=== PATIENT | female | born 1975 | race Caucasian/White ===

== ENCOUNTER 2019-02-26 15:57 | Inpatient (IN) ==
[2019-02-26 16:26] LABS: Hematocrit (blood only) 27.6 % (37-47); Hemoglobin 8.5 g/dL (12.0-16.0); Mean Corpuscular Hgb Conc 30.8 g/dL (32-36); Mean Corpuscular Volume 98.2 fL (80-100); Mean Platelet Volume 8.6 fL (7.4-10.4); Nucleated RBC # (auto) 0.06 K/uL (0-0); Nucleated RBC % (auto) 0.5 %; Platelet Count 232 K/uL (130-400); RDW Coefficient of Variation 16.2 % (11.5-14.5); RDW Standard Deviation 57.8 fL (36.4-46.3); Red Blood Count 2.81 M/uL (4.2-5.4); White Blood Count 13.51 K/uL (4.8-10.8)
[2019-02-26 16:53] LABS: Basophils # (auto) 0.03 K/uL (0-0.2); Basophils % (auto) 0.2 %; Eosinophils # (auto) 0.08 K/uL (0-0.5); Eosinophils % (auto) 0.6 %; Hypochromasia Present; Immature Granulocytes # (auto) 0.53 K/uL (0.00-0.02); Immature Granulocytes % (auto) 3.9 %; Lymphocytes % (auto) 2.2 %; Monocytes # (auto) 1.01 K/uL (0.11-0.59); Monocytes % (auto) 7.5 %; Neutrophils # (auto) 11.56 K/uL (1.4-6.5); Neutrophils % (auto) 85.6 %
[2019-02-26 16:59] LABS: Calcium 9.9 mg/dl (8.5-10.1); Creatinine Clr Calc Pharmacy 114.8 ml/min; Est GFR (African American) 119.7; Est GFR (Non-African American) 103.3; Potassium 3.4 mmol/L (3.5-5.1)
[2019-02-26 17:04] LABS: Albumin Globulin Ratio 0.5 (0.9-2); Bilirubin,Total 0.3 mg/dl (0.2-1); Globulin 3.8 gm/dl (2.5-4.0); Total Protein 5.8 gm/dl (6.4-8.2); Troponin I 0.025 ng/ml (0-0.045)
--- NOTE | 2019-02-26 17:32 | XRay Report ---
XR chest 1V portable HISTORY: 43 years-old Female weakness acute weakness COMPARISON: Chest radiograph 09/30/2018 TECHNIQUE: Portable AP view of the chest FINDINGS: Cardiac silhouette appears unchanged. Stable positioning of left pectoral Acvvla-b-Cfql catheter. Khadra ear subsegmental right basilar opacities suggest atelectasis. There are hazy left. Hilar and left blas g base opacities with small left pleural effusion. No pneumothorax. Bones of the chest appear grossly intact. IMPRESSION: 1. Hazy left perihilar and left lung base opacities with small left pleural effusion. 2. Subsegmental right basilar atelectasis. The above report was generated using voice recognition software. It may contain grammatical, syntax o r spelling errors. Electronically signed by: Robbie Kohler M.D. 02/26/2019 5:30 PM
[2019-02-26] MEDS ORDERED: SODIUM CHLORIDE 0.9% 250 ML IV PRN (18:07)
[2019-02-26] MEDS ORDERED: CEFEPIME 2,000 MG/20 ML VIAL IV STA (18:07)
[2019-02-26] MEDS ORDERED: MoRPHine SULFATE 4 MG/ML 1 ML CARP\\VIAL IV PRN (18:07)
[2019-02-26] MEDS ORDERED: ONDANSETRON INJ 2 MG/ML 2 ML VIAL IV STA (18:07)
[2019-02-26] MEDS ORDERED: SODIUM CHLORIDE 0.9% 1000ML 500 ML IV ONE (18:07)
[2019-02-26 18:47] LABS: Partial Thromboplastin Time 26.6 Seconds (21.0-31.0); Prothrombin Time 10.5 Seconds (9.0-12.0)
[2019-02-26 19:04] LABS: Appearance Urine Clear (Clear); Bacteria Urine Automated Negative (Negative); Bilirubin Urine Negative (Negative); Blood Urine Negative (Negative); Color Urine Yellow; Glucose Urine UA Negative (Negative); Ketones Urine Trace (Negative); Leukocyte Esterase Urine Negative (Negative); Nitrite Urine Negative (Negative); Protein Urine Trace (Negative); RBC Urine Automated 0-4 /hpf (0-4); Specific Gravity Urine 1.032 (1.000-1.030); Urobilinogen Urine Negative (Negative); pH Urine 5.5 (4.5-7.5)
[2019-02-26] MEDS ORDERED: MAGNESIUM SULFATE / D5W 1 GM/100 ML BAG IV ONE (19:04)
[2019-02-26] MEDS ORDERED: OPTIRAY 320 125ml IV PRN (19:09)
--- NOTE | 2019-02-26 19:38 | CT Scan Report ---
CT angio chest PE protocol HISTORY: 43 years-old Female with PE. Acute shortness of breath TECHNIQUE: Multiple CTA images of the chest were obtained after the intravenous administration of 116 ml Optiray 320. Coronal and sagittal MIPS were obtained from the axial data set and were submitted for review. All measurements were obtained according to NASCET criteria. A dose lowering technique w as utilized adhering to the principles of ALARA. COMPARISON: CT abdomen and pelvis and chest radiograph of same day, PET CT 09/14/2018. FINDINGS: Limited exam secondary to positioning. CTA: Heart is normal in size without pericardial effusion. No thoracic aortic aneurysm or dissection. The pulmonary arterial tree is opacified to the level of the segmental branches and demonstrates no focal filling defects to suggest pulmonary thromboembolic disease. CT CHEST: Enlarged mediastinal and hilar lymph nodes include a 10 mm right paratracheal lymph node, image 187 s eries 7 which is new. Necrotic left infrahilar lymph nodes. Right lateral chest wall 1.2 x 1.0 cm nod ule on image 56 series 7 is also new from comparison as is a right paracentral lower chest wall 1.2 c m nodule on image 79 series 7. Small bilateral pleural effusions. Bilateral pulmonary nodules measuring up to 2.0 cm within the left upper lobe, image 198 series 7 are new from comparison compatible with pulmonary metastatic disease. A metastatic lesion within the basal left lower lobe demonstrates mild central cavitation. Largest m etastatic lesion on the right measures approximately 1.4 cm. Mild subsegmental bibasilar atelectasis. Exophytic 1.3 cm lesion of the superior pole left kidney. Multiple lytic bony metastasis are noted i ncluding bony destructive lesions of the T5, T6 and T7 vertebral bodies resulting in pathologic compr ession deformities at T6 and T7. There is probable tumor extension at T6 and right neuroforamen distr ibution and epidural space. Lytic lesions noted throughout the sternum, notably within the manubrium with soft tissue component noted. IMPRESSION: 1. Extensive metastatic disease throughout the chest has progressed from 09/14/2018 manifested by pulm onary metastasis, metastatic mediastinal and hilar adenopathy, metastatic chest wall nodules and lyti c bony metastasis. 2. Bony metastasis at T6 and T7 results in pathologic compression deformities. Soft tissue component at T6 involves the right neuroforaminal distribution and epidural space resulting in at least mild ce ntral canal stenosis. 3. Small bilateral pleural effusions, likely malignant. 4. Exophytic lesion of the about the super pole left kidney is also suggestive of metastasis, new fro m comparison. The above report was generated using voice recognition software. It may contain grammatical, syntax o r spelling errors. Electronically signed by: Robbie Kohler M.D. 02/26/2019 7:36 PM
--- NOTE | 2019-02-26 19:41 | CT Scan Report ---
ABDOMEN AND PELVIS CT WITH IV CONTRAST CT DOSE: 2186.90 mGy.cm HISTORY: please eval the pelvis/vaginal area--cancer hist TECHNIQUE: Multiaxial CT images of the abdomen and pelvis were performed following the use of intrave nous contrast. A dose lowering technique was utilized adhering to the principles of ALARA. COMPARISON STUDY: Pelvis CT 10/08/2018. PET CT 09/14/2018. FINDINGS: Trace bilateral pleural effusions. Scattered pulmonary nodules are better present in the day chest CT and are new from the prior study. There are 2 soft tissue nodules within the right ch est wall with the largest measuring 13 mm. These are also new from the prior study and likely represe nt metastatic foci. The spleen and kidneys are unremarkable. No hydronephrosis. There is a new hypode nse nodule abutting the upper pole the left kidney which measures 15 mm. This favors a metastatic foc us. 3 mm soft tissue nodule abutting the lower pole of the right kidney on image 209. This may also r epresent a small metastatic focus and is new from the prior study. Mild inflammatory change surroundi ng the pancreatic tail. This favors a mild acute pancreatitis. Prior cholecystectomy. Hepatic steatos is. No retroperitoneal lymphadenopathy. There is a Carrillo catheter within the bladder. This likely acc ounts for the gas within the bladder lumen. There is a 1.3 cm necrotic nodule within the lower left r ectus abdominis muscle. This is consistent with a metastatic focus. Soft tissue thickening of the vul va persists and is consistent with the patient's known malignancy. Small focal skin ulceration at the lateral left perineum/gluteal crease adjacent to the left side of the anus. This measures 1.9 cm. No evidence for an abscess. Moderate stool within the colon. No definite bowel wall thickening. Fat str anding adjacent to the sigmoid colon may represent serosal implants rather than inflammatory change. There is a mildly enlarged left external iliac lymph node measuring 1.6 cm. The inguinal lymphadenopa thy has improved. Mild superior endplate compression fracture at L2 which may be pathologic. There is also small compression fracture with a possible lytic lesion of the inferior endplate of L1. T6-T8 d estructive lesions are better appreciated on the same day chest CT. These result in compression fract ures at T6 and T7. IMPRESSION: 1. Interval development of extensive metastatic disease as described above. Please refer to the same day chest CT for further evaluation. 2. Mild acute pancreatitis. 3. Fat stranding surrounding the distal sigmoid colon may represent serosal implants rather than infl ammatory change. There is no definite bowel wall thickening. 4. Soft tissue thickening of the vulva persists consistent with the patient's known malignancy. There is a 1.9 cm focal skin ulceration within the left perineum/gluteal crease adjacent to the anus. No a bscess identified. Electronically signed by: Lobo Villegas M.D. 02/26/2019 7:40 PM
--- NOTE | 2019-02-26 21:57 | History & Physical Report ---
Date of Service February 26, 2019 Assessment & Plan (1) Hypoxia: Ms. Sow is a 43 year old female with a past medical history of vulvar cancer s/p excision, radiation and chemotherapy who presents to [facility] due to shortness of breath and weakness. She was found to be hypoxic in the emergency department, with an oxygen saturation of 89% on room air. Her chest CTA unfortunately revealed extensive metastatic disease throughout the chest, this is new from prior imaging. She was admitted to [facility] for further investigation as well as pain management. ED course: 2 g IV cefepime, 4 mg IV Zofran, 4 mg IV morphine sulfate, 500 mL normal saline bolus, 1 g magnesium sulfate. Hypoxia -Admit to med/surg -CTA negative for PE -CTA showed extensive metastatic disease throughout the chest, with small bilateral pleural effusion - likely the cause of her hypoxia -Continue oxygen as needed -Elevated white cell count of 13.51, however afebrile, no cough, normal lactate, no infection seen on CT chest. Received 2 g of IV cefepime in the emergency department. Blood cultures obtained. Will defer antibiotics for now, given no clear source of infection. 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 Completed chemotherapy and radiation, with good results. -Unfortunately, imaging reveals metastases in the lungs, bony mets at T6 and T7 with resultant compression deformities, a lesion in the superior pole of the left kidney, and a necrotic nodule in the lower left rectus abdominis muscle -> these findings are all new from her prior PET scan on September 14, 2018 -Oncology consulted for further management Pain management -Patient with severe pain to the vulvar area, as well as back (due to bony mets) -Patient takes 30 mg of morphine ER twice daily at home, with Tylenol and ibuprofen for breakthrough pain -We will continue 30 mg of morphine twice daily, with as needed 5 mg oxycodone q4h for breakthrough pain -2 mg IV morphine ordered q4h prn if oxycodone does not suffice -Bowel regimen ordered, given opioid usage -4mg IV zofran ordered q6h given patient gets nauseous with opioid use -lidocaine patch ordered for back pain, and lidocaine jelly ordered for vulvar lesions -wound care consult for vulvar lesions Bilateral lower extremity weakness -Patient with normal sensation in bilateral lower extremities, however notes diffuse weakness in both legs -CTA showed central canal stenosis, likely contributing to bilateral lower extremity weakness -Neurochecks ordered every 4 hours Elevated troponin -No chest pain, EKG with nonspecific T wave abnormalities in lateral leads -Troponin elevated at 0.053 -Trend troponin q6h, repeat EKG in a.m. Inflammation of pancreas -seen on CT abdomen/pelvis -pt without abdominal pain, normal lipase Anemia -Hemoglobin noted to be 8.5, no signs or symptoms of bleeding -No indication to transfuse at this point, follow CBC -Type and cross completed Hypokalemia/Hypomagnesmia -repleted, repeat labs tomorrow CODE STATUS: Full Disposition: Admit to med/surg DVT Prophylaxis: 5,000 units heparin SQ BID F/E/N: Regular diet. Potassium level 3.4, magnesium 1.6 - both repleted. (2) Anemia: (3) Shortness of breath: (4) Weakness: (5) Metastatic cancer: (6) Vulva cancer: (7) Lower extremity weakness: (8) Pain management: (9) Pleural effusion: (10) Elevated troponin: History of Present Illness Primary Care Provider: NO PCP Ms. Sow is a 43 year old female with a past medical history of vulvar cancer s/p excision, radiation and chemotherapy who presents to [facility] due to shortness of breath and weakness. She states that she has no history of pulmonary problems. She notes progressively worsening shortness of breath over the past 2 weeks, and states it has gotten to the point where she is unable to stand due to shortness of breath. She denies fever, chills or cough. She denies chest pain, palpitations, lightheadedness. She denies abdominal pain, nausea, vomiting, but does endorse decreased appetite. With regards to her history of vulvar cancer, she presented to her program support specialist in July 2018 due to perineal pain. She was found to have a lesion extending from the vaginal introitus to the rectum. She was referred to Dr. Lazaro at [facility] who has been following her since. She has also been following with Dr. Early and Dr. Becker in [place]. She had a PET scan in August 2018 that showed masses in the vulva, vagina, perineum and anterior wall of the anus, as well as adenopathy in the bilateral inguinal chains. There was no additional metastatic disease seen in the chest, abdomen, or pelvis. 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 She did not have any surgical excision. She completed her treatment in November 2018. This was considered a successful treatment, and she was not scheduled for any further chemotherapy or radiation. She was meant to have a PET scan in February for reassessment. Her radiation treatment left her with extensive ulceration in the vulvar and perineal region. She takes 30 mg of extended release morphine twice a day for this, and uses Tylenol and ibuprofen for breakthrough pain. She states that she was previously on oxycodone for breakthrough pain, however this was taken off as her pain had improved. In the last 2 weeks, she notes worsening pain in her perineal region, as well as back pain which is new. She attributes this to decreased activity at home. She does endorse bilateral leg weakness and numbness, which she states is new. She has difficulty with urinating and bowel movements due to pain, however denies urinary retention or fecal incontinence. PMHx: vulvar cancer, PCOS, obesity, gestational diabetes PSHx: section, cholecystectomy SHx: , lives at home with her and 4 children. No history of alcohol use, non-smoker, no recreational drug use Allergies Allergy/AdvReac Type Severity Reaction Status Date / Time No Known Allergies Allergy Mild Verified 02/26/19 16:39 Home Medications Home Medications Medication Instructions Recorded Confirmed Type ondansetron 8 mg oral soluble film 8 mg PO Q8H PRN ea 10/19/18 02/26/19 History prochlorperazine maleate 10 mg 10 mg PO Q6H PRN tab 10/19/18 02/26/19 History tablet morphine ER 30 mg capsule,extended 30 mg PO Q12H cap 01/14/19 02/26/19 History release 24 hr multiphase potassium chloride ER 20 mEq 20 meq PO Q OTHER DAY 01/14/19 02/26/19 History tablet,extended release acetaminophen [Tylenol Extra 1,000 mg PO Q6H PRN 02/26/19 02/26/19 History Strength] diphenoxylate-atropine [Lomotil] 1 tab PO BID PRN 02/26/19 02/26/19 History ibuprofen 200 mg PO QID PRN 02/26/19 02/26/19 History norethindrone ac-eth estradiol 1 tab PO UD 02/26/19 02/26/19 History [Margarito 1.5 (21)] silver sulfadiazine [Silvadene] 1 applic TOP BID PRN 02/26/19 02/26/19 History Past Med/Surg History Medical History Morbid obesity PCOS (polycystic ovarian syndrome) Vulvar carcinoma PLAN FOR FUTURE CHEMO/RADIATION PER HEME/ONC NOTE Surgical History History of cholecystectomy History of lymph node excision History of surgery VULVAR RESECTION WITH LNB= 08/2018; ON LOVENOX POST-OP (TO BE COMPLETED PRIOR TO SURGERY PER PATIENT) Previous section Family History Mother No problems noted. Father No problems noted. 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 " Other Information That Helps Us Care for You: No Feels Safe at Home: Yes Safety Concerns: Feels Safe At This Time Smoking Status: Never smoker Second Hand Exposure: No Hx Alcohol Use: No Hx Substance Use: No caffeine: No during the past year weight has: remained stable Review of Systems Constitutional: + fatigue, + weakness and + anorexia; no fever and no chills Respiratory: + dyspnea; no cough, no chest congestion and no wheezing Cardiovascular: no chest pain, no palpitations, no lightheadedness, no syncope, no edema and no calf pain Gastrointestinal: no abdominal pain, no nausea and no vomiting Genitourinary: + dysuria (Due to vulvar lesions, as opposed to overt dysuria); no urinary frequency, no urinary urgency, no urinary incontinence and no hematuria Musculoskeletal: + back pain and + muscle weakness (Bilateral legs) Neurologic: + generalized weakness and + numbness (Bilateral legs); no falls Physical Exam Constitutional: + ill appearing, + obese and cooperative Pale-appearing. Appears uncomfortable, lying very still, with pillows underneath the left side of her back Eyes: PERRL, conjunctivae normal, anicteric sclerae ENMT: external ear and nose normal, oropharynx normal Respiratory: normal respiratory effort, lungs clear to auscultation Cardiovascular: RRR, no murmur, no edema Gastrointestinal (Abdomen): Inspection/Auscultation: abdomen normal to inspection Percussion/Palpation: abdomen soft; abdomen nontender, no guarding and abdomen not rigid Musculoskeletal: Spine: + thoracic spinal tenderness and + paraspinal tenderness Neurologic: 5 out of 5 strength in upper extremities, 4 out of 5 strength in lower extremities bilaterally. Sensation intact in lower extremities bilaterally Genitourinary: multiple ulcerations noted over vulva and perineal region. Carrillo catheter in place Results & Data Vital Signs (Past 12 Hours) Vital Signs Temp Pulse Resp BP Pulse Ox 02/26/19 17:59 100 H 15 108/57 L 92 02/26/19 16:11 89 L 02/26/19 16:00 37.1 C 102 H 22 119/71 89 L Supervising Physician Co-Signing Physician Notes patient seen and examined, chart reviewed, case discussed with Dr. Elam and I agree with her assessment and plan as above. Briefly, patient is a 43yo C female with history of vulvar cancer s/p surgical excision, XRT and chemo in November presenting with 2 week of SOB. Patient found to have diffuse metastaic disease. On exam she is afebrile, HD stable Assessment/Plan: -Pain control with Morphine, Oxy -Oncology consult -Remainder of plan as above PG Care Time/CCT Total # of Minutes Spent Total Time Spent with Patient: Total time spent is greater than 50% in coordination of care (as documented) at patient's floor/unit and/or counseling patient: Resident Activity Tracking Resident Involvement: Resident Care Provided Care Provided: Adult Hospital Medicine (1) Anemia Anemia type: unspecified type Qualified Code(s): D64.9 - Anemia, unspecified
[2019-02-26] MEDS ORDERED: MoRPHine SULFATE CR 15 MG TABCR PO SCH (22:41)
[2019-02-26] MEDS ORDERED: DIPHENOXYLATE/ATROPINE 2.5/0.025MG TAB PO PRN (22:41)
[2019-02-26] MEDS ORDERED: ONDANSETRON INJ 2 MG/ML 2 ML VIAL IV PRN (22:41)
[2019-02-26] MEDS ORDERED: PROCHLORPERAZINE MALEATE 10 MG TAB PO PRN (22:41)
[2019-02-26] MEDS ORDERED: IBUPROFEN 200 MG TAB PO PRN (22:41)
[2019-02-26] MEDS ORDERED: ACETAMINOPHEN 500 MG TAB PO PRN (22:41)
[2019-02-26] MEDS ORDERED: MoRPHine SULFATE 2 MG/ML CARP IV PRN (22:41)
[2019-02-26] MEDS ORDERED: LIDOCAINE 2% JELLY 5 ML TUBE EXT PRN (22:41)
--- NOTE | 2019-02-26 23:01 | Emergency Department Note ---
Entered by Francisca Shabazz acting as a scribe for History of Present Illness General Chief complaint: Weakness Stated complaint: WEAKNESS, UNABLE TO AMBULATE Time Seen by Provider: 02/26/19 17:44 Source: patient History of Present Illness Onset (ago): week(s) 1 Location: head (generalized) Pain Consistency: + other (worsening) Maximum Pain Intensity: 7 Quality: + other (weakness) Associated symptoms: + nausea/vomiting (positive intermittent vomiting at baseline ) and + other (negative black or bloody stools; positive pale ); no cough and no fever/chills The patient is a 43 year old female who presents to the Emergency Room with complaints of worsening weakness that began about one week prior to arrival. The patient states that she was unable to walk today. 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 She reports that after this, she began to have vaginal pain and ulcers. The patient states that she has still these ulcers. The patient denies any black or bloody stools, cough, and fever. She states that she has been pale recently. The patient reports intermittent vomiting. Home Medications Home Medications Medication Instructions Recorded Confirmed Type ondansetron 8 mg oral soluble film 8 mg PO Q8H PRN ea 10/19/18 02/26/19 History prochlorperazine maleate 10 mg 10 mg PO Q6H PRN tab 10/19/18 02/26/19 History tablet morphine ER 30 mg capsule,extended 30 mg PO Q12H cap 01/14/19 02/26/19 History release 24 hr multiphase potassium chloride ER 20 mEq 20 meq PO Q OTHER DAY 01/14/19 02/26/19 History tablet,extended release acetaminophen [Tylenol Extra 1,000 mg PO Q6H PRN 02/26/19 02/26/19 History Strength] diphenoxylate-atropine [Lomotil] 1 tab PO BID PRN 02/26/19 02/26/19 History ibuprofen 200 mg PO QID PRN 02/26/19 02/26/19 History norethindrone ac-eth estradiol 1 tab PO UD 02/26/19 02/26/19 History [Margarito 1.5/30 (21)] silver sulfadiazine [Silvadene] 1 applic TOP BID PRN 02/26/19 02/26/19 History Allergies Allergy/AdvReac Type Severity Reaction Status Date / Time No Known Allergies Allergy Mild Verified 02/26/19 16:39 Past Med/Surg History Medical History Morbid obesity PCOS (polycystic ovarian syndrome) Vulvar carcinoma PLAN FOR FUTURE CHEMO/RADIATION PER HEME/ONC NOTE Surgical History History of cholecystectomy History of lymph node excision History of surgery VULVAR RESECTION WITH LNB= 08/2018; ON LOVENOX POST-OP (TO BE COMPLETED PRIOR TO SURGERY PER PATIENT) Previous section Family History Mother No problems noted. Father No problems noted. 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 and A total of 10 systems reviewed and were otherwise negative Physical Exam Vital Signs Vital Signs - 24 hr 02/26/19 16:00 02/26/19 16:11 02/26/19 17:59 Temperature 37.1 C Temperature Source Oral Sepsis Recent Fever Within 48 Hours No Sepsis New/Unexplained Change in Mental Status No Sepsis Action Taken by Nursing No Action Required Oxygen Flow Rate - Titration 2 Pulse Oximetry Post Tiitration 94 Pulse Rate 102 H 100 H Pulse Rate from SpO2 Sensor 101 H Respiratory Rate 22 15 Respiratory Effort / Characteristics Short of Breath Respiratory Depth Normal Respiratory Pattern Regular Blood Pressure 119/71 108/57 L Blood Pressure Mean 87 74 Pulse Oximetry 89 L 89 L 92 Oxygen Delivery Method Room Air Room Air Nasal Cannula Nasal Cannula Oxygen Flow Rate 0 2 GENERAL: Patient is in no acute distress. HEENT: No acute trauma, normocephalic atraumatic, mucous membranes moist, no nasal congestion, no scleral icterus. NECK: No stridor, no adenopathy, no meningismus, trachea is midline. LUNGS: Clear to auscultation bilaterally, no wheeze, no rhonchi, breath sounds equal. HEART: Without murmurs gallops or rubs, regular rate and rhythm. ABDOMEN: Soft, nontender, bowel sounds positive, no hernias, no peritonitis. VAGINAL: Extensive ulcerations to the vaginal area, rectal area, and perineal area. Some skin erythema surrounding the ulcers and there is some subtle warmth. The whole area is very tender. RECTAL: Could not be performed secondary to the ulcers and pain. EXTREMITIES: No cyanosis or edema, full range of motion of all the joints without pain or difficulty, no signs for acute trauma. NEUROLOGIC: Oriented x 3, no acute motor or sensory deficits, no focal weakness. SKIN: Pale. No rash, no jaundice, no diaphoresis. Course 1800: Past medical records reviewed. The patient was evaluated in room C6. A complete history and physical exam was performed. 2003: I updated the patient on all results. 2007: [facility] states that the patient does not need to be transferred to another facility. 2044: [facility]. 2117: I updated the patient on the treatment plan. She is in agreement with this. Consultations Consultation #1: I [facility] who states that the patient does not need to be transferred to another facility. Time: 20:08 Consultation #2: [facility] for further evaluation. Time: 20:45 Administered Medications Acetaminophen (Tylenol) 1,000 mg PO Q6H PRN PRN Reason: Pain Stop: 03/28/19 22:40 Last Admin: 02/27/19 05:24 Dose: 1,000 mg Documented by: [id number] Heparin Sodium (Porcine) (Heparin Sodium (Porcine)) 5,000 units SQ Q12 NICOLLE Stop: 03/29/19 08:59 Last Admin: 02/27/19 08:47 Dose: 5,000 units Documented by: [id number] Cosigned by: [id number] Heparin Sodium (Porcine) (Heparin Sod 100 Unit/Ml Flush) 5 ml FLUSH PRN PRN PRN Reason: Flush Stop: 03/28/19 22:59 Last Admin: 02/27/19 00:00 Dose: 5 ml Documented by: [id number] Hydromorphone HCl (Dilaudid Maintenance [employer]ic 2Nd Shift) 25 mg IV PRN PRN; Protocol PRN Reason: Pain Stop: 03/13/19 10:23 Last Admin: 02/27/19 11:04 Dose: 25 mg Documented by: [id number] Cosigned by: [id number] Cefepime HCl 2,000 mg/ Syringe 20 mls @ 5.5 mls/min IV Q8H NICOLLE; Protocol Stop: 03/01/19 05:59 Last Admin: 02/27/19 06:04 Dose: 5.5 mls/min Documented by: [id number] Lactated Ringer's (Lr) 1,000 mls @ 125 mls/hr IV .Q8H NICOLLE Stop: 02/27/19 22:14 Last Admin: 02/27/19 07:27 Dose: 125 mls/hr Documented by: [id number] Sodium Chloride (Nss 1000ml) 1,000 mls @ 15 mls/hr IV .Q24H NICOLLE Stop: 03/13/19 10:24 Last Admin: 02/27/19 11:19 Dose: Not Given Documented by: [id number] Ioversol (Optiray 320 125ml) 116 ml IV ONCE PRN PRN Reason: Interaction Checking Stop: 03/02/19 19:08 Last Admin: 02/26/19 19:10 Dose: 116 ml Documented by: [id number] Lidocaine (Lidoderm 5%) 1 patch TD DAILY@1230 NICOLLE Stop: 03/29/19 12:29 Last Admin: 02/27/19 12:39 Dose: 1 patch Documented by: [id number] Lidocaine HCl (Xylocaine Jely 2%) 5 ml EXT TID PRN PRN Reason: Pain Stop: 03/28/19 22:40 Last Admin: 02/26/19 23:44 Dose: 5 ml Documented by: [id number] Miscellaneous (Order Awaiting Action) 1 ea N/A QS [facility] Stop: 03/29/19 00:00 Last Admin: 02/27/19 09:00 Dose: Not Given Documented by: [id number] Admin: 02/27/19 00:38 Dose: Not Given Documented by: [id number] Morphine Sulfate (Ms Contin) 30 mg PO Q12 NICOLLE Stop: 03/12/19 23:14 Last Admin: 02/27/19 08:45 Dose: 30 mg Documented by: [id number] Admin: 02/26/19 23:35 Dose: 30 mg Documented by: [id number] Oxycodone HCl (Roxicodone Immediate Rel) 5 mg PO Q4H PRN PRN Reason: Moderate Pain Stop: 03/12/19 22:40 Last Admin: 02/27/19 07:34 Dose: 5 mg Documented by: [id number] Discontinued Medications Hydromorphone HCl (Dilaudid) 1 mg IV ONE STA Stop: 02/27/19 10:25 Last Admin: 02/27/19 10:42 Dose: 1 mg Documented by: [id number] Cefepime HCl (Maxipime) 2,000 mg in 20 mls @ 5 mls/min IV NOW STA; Protocol Stop: 02/26/19 18:10 Last Admin: 02/26/19 19:25 Dose: 5 mls/min Documented by: [id number] Sodium Chloride (Nss 1000ml) 500 mls @ 999 mls/hr IV .Q31M ONE Stop: 02/26/19 18:37 Last Infusion: 02/26/19 19:02 Dose: 0 mls/hr Documented by: [id number] Admin: 02/26/19 18:35 Dose: 999 mls/hr Documented by: [id number] Magnesium Sulfate/Dextrose (Magnesium Sulfate / D5w) 1 gm in 100 mls @ 100 mls/hr IV ONE ONE Stop: 02/26/19 20:03 Last Infusion: 02/26/19 20:54 Dose: 0 mls/hr Documented by: [id number] Admin: 02/26/19 19:25 Dose: 100 mls/hr Documented by: [id number] Vancomycin HCl 2,500 mg/ (Sodium Chloride) 550 mls @ 200 mls/hr IV ONE ONE; Protocol Stop: 02/27/19 08:44 Last Infusion: 02/27/19 09:10 Dose: 200 mls/hr Documented by: [id number] Admin: 02/27/19 06:04 Dose: 200 mls/hr Documented by: [id number] Sodium Chloride (Nss 1000ml) 1,000 mls @ 999 mls/hr IV .Q1H1M STA Stop: 02/27/19 06:42 Last Infusion: 02/27/19 07:27 Dose: 0 mls/hr Documented by: [id number] Admin: 02/27/19 05:53 Dose: 999 mls/hr Documented by: [id number] Lidocaine (Lidoderm 5%) 1 patch TD HS NICOLLE Stop: 03/28/19 23:14 Last Admin: 02/26/19 23:41 Dose: 1 patch Documented by: [id number] Miscellaneous (Remove Lidoderm Patch) 1 ea N/A QAM NICOLLE Stop: 03/29/19 08:59 Last Admin: 02/27/19 08:59 Dose: 1 ea Documented by: [id number] Morphine Sulfate (Morphine Sulfate) 4 mg IV Q30M PRN PRN Reason: Pain Stop: 03/12/19 18:06 Last Admin: 02/26/19 18:35 Dose: 4 mg Documented by: [id number] Morphine Sulfate (Morphine Sulfate) 2 mg IV Q4H PRN PRN Reason: Severe Pain Stop: 03/12/19 22:40 Last Admin: 02/27/19 08:45 Dose: 2 mg Documented by: [id number] Ondansetron HCl (Zofran) 4 mg IV NOW STA Stop: 02/26/19 18:08 Last Admin: 02/26/19 18:35 Dose: 4 mg Documented by: [id number] Potassium Chloride (Klor-Con M20) 20 meq PO NOW STA Stop: 02/26/19 23:59 Last Admin: 02/27/19 00:21 Dose: 20 meq Documented by: [id number] Medical Decision Making Differential Diagnosis Differential diagnoses include cellulitis, abscess, PE, sepsis, CHF, pneumonia, anemia, electrolyte imbalance, dehydration, UTI, and others were considered. Medical Records Attestation: I reviewed the patient's medical records. Home Medications Current Medication List: was personally reviewed by me Laboratory Data Attestation: I reviewed the patient's lab results. Result diagrams: 02/27/19 05:43 02/27/19 05:43 Lab Results 02/26/19 02/26/19 02/26/19 Range/Units 16:10 16:10 16:10 WBC 13.51 H (4.8-10.8) K/uL RBC 2.81 L (4.2-5.4) M/uL Hgb 8.5 L (12.0-16.0) g/dL Hct 27.6 L (37-47) % MCV 98.2 (80-100) fL MCH 30.2 (25-34) pg MCHC 30.8 L (32-36) g/dL RDW Std Deviation 57.8 H (36.4-46.3) fL RDW Coeff of Karthik 16.2 H (11.5-14.5) % Plt Count 232 (130-400) K/uL MPV 8.6 (7.4-10.4) fL Immature Gran % (Auto) 3.9 % Neut % (Auto) 85.6 % Lymph % (Auto) 2.2 % Hemphill % (Auto) 7.5 % Eos % (Auto) 0.6 % Baso % (Auto) 0.2 % Immature Gran # (Auto) 0.53 H (0.00-0.02) K/uL Neut # (Auto) 11.56 H (1.4-6.5) K/uL Lymph # (Auto) 0.30 L (1.2-3.4) K/uL Hemphill # (Auto) 1.01 H (0.11-0.59) K/uL Eos # (Auto) 0.08 (0-0.5) K/uL Baso # (Auto) 0.03 (0-0.2) K/uL Absolute Nucleated RBC 0.06 H (0-0) K/uL Nucleated RBC % (auto) 0.5 % Hypochromasia Present PT (9.0-12.0) Seconds INR (0.9-1.1) APTT (21.0-31.0) Seconds PTT Ratio Sodium 137 (136-145) mmol/L Potassium 3.4 L (3.5-5.1) mmol/L Chloride 107 (98-107) mmol/L Carbon Dioxide 20 L (21-32) mmol/L Anion Gap 10.0 (3-11) BUN 20 H (7-18) mg/dl Creatinine 0.72 (0.6-1.2) mg/dl Est Cr Clr Drug Dosing 114.8 ml/min Est GFR ( Amer) 119.7 Est GFR (Non-Af Amer) 103.3 BUN/Creatinine Ratio 28.0 H (10-20) Glucose 103 H (70-99) mg/dl Lactate (0.4-2.0) mmol/L Calcium 9.9 (8.5-10.1) mg/dl Magnesium (1.8-2.4) mg/dl Total Bilirubin 0.3 (0.2-1) mg/dl AST 9 L (15-37) U/L ALT 9 L (12-78) U/L Alkaline Phosphatase 163 H (45-117) U/L Troponin I 0.025 (0-0.045) ng/ml Total Protein 5.8 L (6.4-8.2) gm/dl Albumin 2.0 L (3.4-5.0) gm/dl Globulin 3.8 (2.5-4.0) gm/dl Albumin/Globulin Ratio 0.5 L (0.9-2) Lipase (73-393) U/L Urine Color Yellow Urine Appearance Clear (Clear) Urine pH 5.5 (4.5-7.5) Ur Specific Bertrand 1.032 H (1.000-1.030) Urine Protein Trace H (Negative) Urine Glucose (UA) Negative (Negative) Urine Ketones Trace H (Negative) Urine Blood Negative (Negative) Urine Nitrite Negative (Negative) Urine Bilirubin Negative (Negative) Urine Urobilinogen Negative (Negative) Ur Leukocyte Esterase Negative (Negative) Urine WBC (Auto) 1-5 (0-5) /hpf Urine RBC (Auto) 0-4 (0-4) /hpf U Hyaline Cast (Auto) 5-10 H (0-5) /lpf U Epithel Cells (Auto) 10-20 H (0-5) /lpf Urine Bacteria (Auto) Negative (Negative) Blood Type Antibody Screen Crossmatch 02/26/19 02/26/19 02/26/19 Range/Units 16:10 18:20 18:20 WBC (4.8-10.8) K/uL RBC (4.2-5.4) M/uL Hgb (12.0-16.0) g/dL Hct (37-47) % MCV (80-100) fL MCH (25-34) pg MCHC (32-36) g/dL RDW Std Deviation (36.4-46.3) fL RDW Coeff of Karthik (11.5-14.5) % Plt Count (130-400) K/uL MPV (7.4-10.4) fL Immature Gran % (Auto) % Neut % (Auto) % Lymph % (Auto) % Hemphill % (Auto) % Eos % (Auto) % Baso % (Auto) % Immature Gran # (Auto) (0.00-0.02) K/uL Neut # (Auto) (1.4-6.5) K/uL Lymph # (Auto) (1.2-3.4) K/uL Hemphill # (Auto) (0.11-0.59) K/uL Eos # (Auto) (0-0.5) K/uL Baso # (Auto) (0-0.2) K/uL Absolute Nucleated RBC (0-0) K/uL Nucleated RBC % (auto) % Hypochromasia PT (9.0-12.0) Seconds INR (0.9-1.1) APTT (21.0-31.0) Seconds PTT Ratio Sodium (136-145) mmol/L Potassium (3.5-5.1) mmol/L Chloride (98-107) mmol/L Carbon Dioxide (21-32) mmol/L Anion Gap (3-11) BUN (7-18) mg/dl Creatinine (0.6-1.2) mg/dl Est Cr Clr Drug Dosing ml/min Est GFR ( Amer) Est GFR (Non-Af Amer) BUN/Creatinine Ratio (10-20) Glucose (70-99) mg/dl Lactate (0.4-2.0) mmol/L Calcium (8.5-10.1) mg/dl Magnesium 1.6 L (1.8-2.4) mg/dl Total Bilirubin (0.2-1) mg/dl AST (15-37) U/L ALT (12-78) U/L Alkaline Phosphatase (45-117) U/L Troponin I (0-0.045) ng/ml Total Protein (6.4-8.2) gm/dl Albumin (3.4-5.0) gm/dl Globulin (2.5-4.0) gm/dl Albumin/Globulin Ratio (0.9-2) Lipase 288 (73-393) U/L Urine Color Urine Appearance (Clear) Urine pH (4.5-7.5) Ur Specific Bertrand (1.000-1.030) Urine Protein (Negative) Urine Glucose (UA) (Negative) Urine Ketones (Negative) Urine Blood (Negative) Urine Nitrite (Negative) Urine Bilirubin (Negative) Urine Urobilinogen (Negative) Ur Leukocyte Esterase (Negative) Urine WBC (Auto) (0-5) /hpf Urine RBC (Auto) (0-4) /hpf U Hyaline Cast (Auto) (0-5) /lpf U Epithel Cells (Auto) (0-5) /lpf Urine Bacteria (Auto) (Negative) Blood Type B Positive Antibody Screen NEGATIVE Crossmatch See Detail 02/26/19 02/26/19 Range/Units 18:20 18:23 WBC (4.8-10.8) K/uL RBC (4.2-5.4) M/uL Hgb (12.0-16.0) g/dL Hct (37-47) % MCV (80-100) fL MCH (25-34) pg MCHC (32-36) g/dL RDW Std Deviation (36.4-46.3) fL RDW Coeff of Karthik (11.5-14.5) % Plt Count (130-400) K/uL MPV (7.4-10.4) fL Immature Gran % (Auto) % Neut % (Auto) % Lymph % (Auto) % Hemphill % (Auto) % Eos % (Auto) % Baso % (Auto) % Immature Gran # (Auto) (0.00-0.02) K/uL Neut # (Auto) (1.4-6.5) K/uL Lymph # (Auto) (1.2-3.4) K/uL Hemphill # (Auto) (0.11-0.59) K/uL Eos # (Auto) (0-0.5) K/uL Baso # (Auto) (0-0.2) K/uL Absolute Nucleated RBC (0-0) K/uL Nucleated RBC % (auto) % Hypochromasia PT 10.5 (9.0-12.0) Seconds INR 1.0 (0.9-1.1) APTT 26.6 (21.0-31.0) Seconds PTT Ratio 1.0 Sodium (136-145) mmol/L Potassium (3.5-5.1) mmol/L Chloride (98-107) mmol/L Carbon Dioxide (21-32) mmol/L Anion Gap (3-11) BUN (7-18) mg/dl Creatinine (0.6-1.2) mg/dl Est Cr Clr Drug Dosing ml/min Est GFR ( Amer) Est GFR (Non-Af Amer) BUN/Creatinine Ratio (10-20) Glucose (70-99) mg/dl Lactate 1.0 (0.4-2.0) mmol/L Calcium (8.5-10.1) mg/dl Magnesium (1.8-2.4) mg/dl Total Bilirubin (0.2-1) mg/dl AST (15-37) U/L ALT (12-78) U/L Alkaline Phosphatase (45-117) U/L Troponin I (0-0.045) ng/ml Total Protein (6.4-8.2) gm/dl Albumin (3.4-5.0) gm/dl Globulin (2.5-4.0) gm/dl Albumin/Globulin Ratio (0.9-2) Lipase (73-393) U/L Urine Color Urine Appearance (Clear) Urine pH (4.5-7.5) Ur Specific Bertrand (1.000-1.030) Urine Protein (Negative) Urine Glucose (UA) (Negative) Urine Ketones (Negative) Urine Blood (Negative) Urine Nitrite (Negative) Urine Bilirubin (Negative) Urine Urobilinogen (Negative) Ur Leukocyte Esterase (Negative) Urine WBC (Auto) (0-5) /hpf Urine RBC (Auto) (0-4) /hpf U Hyaline Cast (Auto) (0-5) /lpf U Epithel Cells (Auto) (0-5) /lpf Urine Bacteria (Auto) (Negative) Blood Type Antibody Screen Crossmatch Imaging Data Radiologist's Impression: Radiology results as stated below per my review and the radiologist's interpretation: XR chest 1V portable HISTORY: 43 years-old Female weakness acute weakness COMPARISON: Chest radiograph 09/30/2018 TECHNIQUE: Portable AP view of the chest FINDINGS: Cardiac silhouette appears unchanged. Stable positioning of left pectoral Jfwrlw-[id number] catheter. Linear subsegmental right basilar opacities suggest atelectasis. There are hazy left. Hilar and left lung base opacities with small left pleural effusion. No pneumothorax. Bones of the chest appear grossly intact. IMPRESSION: 1. Hazy left perihilar and left lung base opacities with small left pleural effusion. 2. Subsegmental right basilar atelectasis. The above report was generated using voice recognition software. It may contain grammatical, syntax or spelling errors. Electronically signed by: Robbie Kohler M.D. 02/26/2019 5:30 PM ABDOMEN AND PELVIS CT WITH IV CONTRAST CT DOSE: 2186.90 mGy.cm HISTORY: please eval the pelvis/vaginal area--cancer hist TECHNIQUE: Multiaxial CT images of the abdomen and pelvis were performed following the use of intravenous contrast. A dose lowering technique was utilized adhering to the principles of ALARA. COMPARISON STUDY: Pelvis CT 10/08/2018. PET CT 09/14/2018. FINDINGS: Trace bilateral pleural effusions. Scattered pulmonary nodules are b amrita present in the same day chest CT and are new from the prior study. There are 2 soft tissue nodules within the right chest wall with the largest measuring 13 mm. These are also new from the prior study and likely represent metastatic foci. The spleen and kidneys are unremarkable. No hydronephrosis. There is a new hypodense nodule abutting the upper pole the left kidney which measures 15 mm. This favors a metastatic focus. 3 mm soft tissue nodule abutting the lower pole of the right kidney on image 209. This may also represent a small metastatic focus and is new from the prior study. Mild inflammatory change surrounding the pancreatic tail. This favors a mild acute pancreatitis. Prior cholecystectomy. Hepatic steatosis. No retroperitoneal lymphadenopathy. There is a Carrillo catheter within the bladder. This likely accounts for the gas within the bladder lumen. There is a 1.3 cm necrotic nodule within the lower left rectus abdominis muscle. This is consistent with a metastatic focus. Soft tissue thickening of the vulva persists and is consistent with the patient's known malignancy. Small focal skin ulceration at the lateral left perineum/gluteal crease adjacent to the left side of the anus. This measures 1.9 cm. No evidence for an abscess. Moderate stool within the colon. No definite bowel wall thickening. Fat stranding adjacent to the sigmoid colon may represent serosal implants rather than inflammatory change. There is a mildly enlarged left external iliac lymph node measuring 1.6 cm. The inguinal lymphadenopathy has improved. Mild superior endplate compression fracture at L2 which may be pathologic. There is also small compression fracture with a possible lytic lesion of the inferior endplate of L1. T6-T8 destructive lesions are better appreciated on the same day chest CT. These result in compression fractures at T6 and T7. IMPRESSION: 1. Interval development of extensive metastatic disease as described above. Please refer to the same day chest CT for further evaluation. 2. Mild acute pancreatitis. 3. Fat stranding surrounding the distal sigmoid colon may represent serosal implants rather than inflammatory change. There is no definite bowel wall thickening. 4. Soft tissue thickening of the vulva persists consistent with the patient's known malignancy. There is a 1.9 cm focal skin ulceration within the left perineum/gluteal crease adjacent to the anus. No abscess identified. Electronically signed by: Lobo Villegas M.D. 02/26/2019 7:[address] angio chest PE protocol HISTORY: 43 years-old Female with PE. Acute shortness of breath TECHNIQUE: Multiple CTA images of the chest were obtained after the intravenous administration of 116 ml Optiray 320. Coronal and sagittal MIPS were obtained from the axial data set and were submitted for review. All measurements were obtained according to NASCET criteria. A dose lowering technique was utilized adhering to the principles of ALARA. COMPARISON: CT abdomen and pelvis and chest radiograph of same day, PET CT 09/14/2018. FINDINGS: Limited exam secondary to positioning. CTA: Heart is normal in size without pericardial effusion. No thoracic aortic aneurysm or dissection. The pulmonary arterial tree is opacified to the level of the segmental branches and demonstrates no focal filling defects to suggest pulmonary thromboembolic disease. CT CHEST: Enlarged mediastinal and hilar lymph nodes include a 10 mm right paratracheal lymph node, image 187 series 7 which is new. Necrotic left infrahilar lymph nodes. Right lateral chest wall 1.2 x 1.0 cm nodule on image 56 series 7 is also new from comparison as is a right paracentral lower chest wall 1.2 cm nodule on image 79 series 7. Small bilateral pleural effusions. Bilateral pulmonary nodules measuring up to 2.0 cm within the left upper lobe, image 198 series 7 are new from comparison compatible with pulmonary metastatic disease. A metastatic lesion within the basal left lower lobe demonstrates mild central cavitation. Largest metastatic lesion on the right measures approximately 1.4 cm. Mild subsegmental bibasilar atelectasis. Exophytic 1.3 cm lesion of the superior pole left kidney. Multiple lytic bony metastasis are noted including bony destructive lesions of the T5, T6 and T7 vertebral bodies resulting in pathologic compression deformities at T6 and T7. There is probable tumor extension at T6 and right neuroforamen distribution and epidural space. Lytic lesions noted throughout the sternum, notably within the manubrium with soft tissue component noted. IMPRESSION: 1. Extensive metastatic disease throughout the chest has progressed from 09/14/2018 manifested by pulmonary metastasis, metastatic mediastinal and hilar adenopathy, metastatic chest wall nodules and lytic bony metastasis. 2. Bony metastasis at T6 and T7 results in pathologic compression deformities. Soft tissue component at T6 involves the right neuroforaminal distribution and epidural space resulting in at least mild central canal stenosis. 3. Small bilateral pleural effusions, likely malignant. 4. Exophytic lesion of the about the super pole left kidney is also suggestive of metastasis, new from comparison. The above report was generated using voice recognition software. It may contain grammatical, syntax or spelling errors. Electronically signed by: Robbie Kohler M.D. 02/26/2019 7:36 PM ECG Data Attestation: I personally reviewed and interpreted this ECG as follows: Indication: weakness Rate (beats per minute): 95 Rhythm: normal sinus Findings: + other (non-specific ST change); no PVC and no ST elevation MDM Narrative There is a mild leukocytosis, this could be consistent with infection or the stress of her situation. She was anemic with a hemoglobin of 8.5, this has been her norm as of late. There was a normal platelet count. No coagulopathy. No kidney failure. Her magnesium was low at 1.6. Alk phos was somewhat elevated, the bilirubin was normal. Lactic acid level is normal, this is reassuring and makes sepsis less likely. Cardiac enzyme testing x1 was not consistent with acute cardiac injury. The lipase was normal. EKG showed a sinus rhythm, no evidence for acute CT/ischemia. Urinalysis did not show evidence for infection. Chest film shows some potential fluid and atelectasis, there was no pneumothorax or obvious focal pneumonia. Chest CT showed multiple areas of metastasis, no PE or pneumonia. Abdominal and pelvis CT showed areas of metastasis as well. There is no abscess in the pelvic/vaginal area. Inflammation and ulcers though were seen consistent with her exam clinically. The patient received IV Zofran, IV cefepime. She was given IV saline, IV magnesium, IV morphine. She received additional IV saline. The patient's dyspnea I think is from her lung metastasis. These lung lesions have made her quite short of breath. Her anemia is also contributing to her dyspnea/fatigue. I do not think she is septic based on her work-up. The patient requires a hospital stay. I did speak with hematology oncology. The patient was felt safe for admission at our facility. I spoke with case management, I spoke with the patient about her findings. The on-call spitalist was consulted. Impression & Plan Hypoxia, Anemia, Shortness of breath, Weakness, Metastatic cancer Discharge Plan Visit Data *Final* Discharge Date/Time: 02/26/19 22:13 Chief Complaint: Weakness Stated Complaint: WEAKNESS, UNABLE TO AMBULATE ED Provider: Jose Alfredo Sanchez Discharge Problem: Hypoxia, Anemia, Shortness of breath, Weakness, Metastatic cancer Patient Disposition: Admitted As Inpatient Discharge Instructions Interventions: ED Discharge Assessment Last Done: 02/26/19 22:13 Discharge Problem: Anemia Qualifiers: Anemia type: unspecified type Qualified Code(s): D64.9 - Anemia, unspecified The jessicaibe's documentation has been prepared under my direction and personally reviewed by me in its entirety. I confirm that the note above accurately reflects all work, treatment, procedures, and medical decision making performed by me.
[2019-02-26] MEDS ORDERED: LIDOCAINE 5% 1 PATCH TD SCH (23:15)
[2019-02-26] MEDS: MoRPHine SULFATE CR 15 MG TABCR PO SCH (23:35)
[2019-02-26] MEDS ORDERED: POLYETHYLENE (MIRALAX) 17 GM PACK PO PRN (23:51)
[2019-02-26] MEDS ORDERED: SENNA 8.6 MG TAB PO PRN (23:51)
[2019-02-26] MEDS ORDERED: DOCUSATE SODIUM 100 MG CAP PO PRN (23:51)
[2019-02-26] MEDS ORDERED: POTASSIUM CHLORIDE 20 MEQ TABCR PO STA (23:58)
[2019-02-27] MEDS: HEPARIN 100 UNIT/ML 5ML FLUSH FLUSH PRN
[2019-02-27] MEDS ORDERED: VANCOMYCIN CONSULT ACTIVE PRN (05:39)
[2019-02-27] MEDS ORDERED: SODIUM CHLORIDE 0.9% 1000ML 1,000 ML IV STA (05:42)
[2019-02-27] MEDS ORDERED: SODIUM CHLORIDE 0.9% 500 ML IV ONE (05:45)
[2019-02-27] MEDS ORDERED: VANCOMYCIN HCL 2,500 MG in SODIUM CHLORIDE 0.9% 500 ML IV ONE (06:00)
[2019-02-27] MEDS: CEFEPIME 2,000 MG in SYRINGE 7.5 ML IV SCH ×3 (06:04→21:44)
[2019-02-27 06:43] LABS: Basophils # (auto) 0.01 K/uL (0-0.2); Basophils % (auto) 0.1 %; Eosinophils # (auto) 0.12 K/uL (0-0.5); Eosinophils % (auto) 1.6 %; Hematocrit (blood only) 23.3 % (37-47); Hemoglobin 7.1 g/dL (12.0-16.0); Immature Granulocytes # (auto) 0.22 K/uL (0.00-0.02); Immature Granulocytes % (auto) 2.9 %; Lymphocytes # (auto) 0.53 K/uL (1.2-3.4); Mean Corpuscular Hgb Conc 30.5 g/dL (32-36); Mean Corpuscular Volume 99.1 fL (80-100); Mean Platelet Volume 8.5 fL (7.4-10.4); Monocytes # (auto) 0.64 K/uL (0.11-0.59); Monocytes % (auto) 8.4 %; Neutrophils # (auto) 6.09 K/uL (1.4-6.5); Nucleated RBC # (auto) 0.03 K/uL (0-0); Nucleated RBC % (auto) 0.5 %; Platelet Count 182 K/uL (130-400); RDW Coefficient of Variation 16.3 % (11.5-14.5); RDW Standard Deviation 58.2 fL (36.4-46.3); Red Blood Count 2.35 M/uL (4.2-5.4); White Blood Count 7.61 K/uL (4.8-10.8)
[2019-02-27 07:16] LABS: Albumin Level 1.6 gm/dl (3.4-5.0); BUN Creatinine Ratio 26.8 (10-20); Calcium 9.5 mg/dl (8.5-10.1); Creatinine Clr Calc Pharmacy 127.9 ml/min; Est GFR (African American) 126.9; Est GFR (Non-African American) 109.5; Magnesium 1.8 mg/dl (1.8-2.4); Potassium 3.7 mmol/L (3.5-5.1)
[2019-02-27 07:23] LABS: Albumin Globulin Ratio 0.5 (0.9-2); Bilirubin,Total 0.2 mg/dl (0.2-1); Globulin 3.4 gm/dl (2.5-4.0); Troponin I 0.063 ng/ml (0-0.045)
[2019-02-27 07:27] LABS: RBC Morphology Unremarkable
[2019-02-27] MEDS: LACTATED RINGER'S 1,000 ML IV SCH ×2 (07:27→15:12)
[2019-02-27] MEDS: OXYCODONE HCL IR 5 MG TAB (IMMEDIATE RELEASE) PO PRN (07:34)
[2019-02-27] MEDS: MoRPHine SULFATE CR 15 MG TABCR PO SCH ×2 (08:45→20:19)
[2019-02-27] MEDS: HEPARIN SOD 5,000 UNIT/0.5 ML VIAL SQ SCH ×2 (08:47→20:19)
[2019-02-27] MEDS ORDERED: NALOXONE HCL 0.4 MG/1 ML VIAL/CARP IV PRN (10:24)
[2019-02-27] MEDS ORDERED: HYDROmorphone INJ 1 MG/ML SYRINGE IV STA (10:24)
[2019-02-27] MEDS: HYDROmorphone HCL 0.5MG/ML 50 ML CASSETTE IV PRN ×2 (11:04→15:11)
[2019-02-27] MEDS: SODIUM CHLORIDE 0.9% 1000ML 1,000 ML IV SCH (11:19)
[2019-02-27] MEDS: LIDOCAINE 5% 1 PATCH TD SCH (12:39)
--- NOTE | 2019-02-27 14:17 | Pharmacy Report ---
Pharmacy Abx Initial Consult - Date of Service February 27, 2019 - Pharmacy Dosing Scope Date of Consult: 02/27/19 Consultation requested by: Dr. Elam Pharmacy is consulted to initiate vancomycin IV dosing therapy, order appropriate labs and adjust drug dose/frequency. - Subjective The patient is a 43 year old F admitted on 02/26/19 21:55. - Objective Height: 5 ft 3 in Weight: 101.1 kg Vital Signs (Past 12hrs): Vital Signs Temp Pulse Pulse Resp BP BP Pulse Ox 02/27/19 13:46 36.9 C 93 H 20 105/68 92 02/27/19 12:53 89 111/73 80/44 L 02/27/19 11:32 37.0 C 84 16 85/53 L 93 02/27/19 11:20 85 93/61 L 02/27/19 09:14 92 H 94 02/27/19 07:31 37.3 C 94 H 18 99/63 L 91 02/27/19 05:21 38.2 C H 103 H 20 94/59 L 91 02/27/19 03:00 37.6 C H 100 H 20 95/61 L 91 Lab Results (24hrs): Laboratory Tests (24 Hours) 02/27/19 02/27/19 02/26/19 05:43 05:43 16:10 WBC 7.61 Neut # (Auto) 6.09 Creatinine 0.65 0.72 Est Cr Clr Drug Dosing 127.9 114.8 02/26/19 16:10 WBC 13.51 H Neut # (Auto) 11.56 H Creatinine Est Cr Clr Drug Dosing Micro Results: 02/26/19 18:26 Aerobic Blood Culture - Pending Blood Anaerobic Blood Culture - Pending 02/26/19 18:20 Aerobic Blood Culture - Pending Blood Anaerobic Blood Culture - Pending - Risk Factors for Resistance * Immunocompromised (finished chemotherapy and radiation for vulvar cancer in November) * - Assessment & Plan Assessment 43 year old F receiving empiric vancomycin and cefepime for treatment of sepsis secondary to unknown source Patient has extensive metastatic disease (including pulmonary metastasis, bony metastasis, etc.) Patient febrile this morning (38.2 C), WBC: 13.5 -> 7.6, MRSA nasal swab: negative, remains hypotensive Blood cultures x 2: pending Plan Vancomycin IV * Estimated PK Parameters: Vd 0.6 L/kg, Arnie 0.104 hr-1, t1/2 6.7 hr * Loading dose: 2500 mg (25 mg/kg) * Maintenance dose: 1500 mg IV (15 mg/kg) every 8 hours * Goal trough level for sepsis : 15 to 20 mcg/mL * Will assess again tomorrow and order trough if patient is to stay on vancomycin Cefepime * 2 grams IV q8h appropriate based on indication and CrCl > 60 mL/min Pharmacy will continue to follow and will adjust dose/frequency as necessary. Thank you.
[2019-02-27] MEDS: VANCOMYCIN HCL 1,500 MG in SODIUM CHLORIDE 0.9% 500 ML IV SCH ×2 (14:55→21:44)
--- NOTE | 2019-02-27 16:41 | Hospitalist Progress Note ---
Date of Service February 27, 2019 Assessment & Plan (1) Hypoxia: Related to metastases to lungs, oxygen and supportive care. Pain control may help her be able to breathe more deeply too. (2) Anemia: Follow. Does not appear to need transfusion at this time (3) Shortness of breath: See above under hypoxia (4) Weakness: Relates to hypoxia and metastatic cancer. (5) Metastatic cancer: Will ask radiation oncology if it is possible to affect her some symptom relief by radiating her thoracic spine region. Otherwise see below under pain. (6) Vulva cancer: Hematology/oncology input pending. (7) Lower extremity weakness: Seems to relate to spine findings, radiation oncology input as above. She is not showing acute deterioration, but it is also possible she may need an Ortho/spine evaluation for stabilization should she show any significant deterioration (8) Pain management: Pain regimen this morning was not helping, increased to Dilaudid MATCHBOOK MAKER and lidocaine patch over the area of her thoracic spine. Revisited this afternoon, her pain was doing better but still not great, increased the MATCHBOOK MAKER dosing slightly and will continue to follow for relief. Bowel regimen and Narcan ordered. (9) Pleural effusion: Related to the malignancy. Right now does not appear to be large enough to drain with any significant improvement in her oxygenation (10) Elevated troponin: Nonspecific. Certainly does not show any findings consistent with an MA (11) Discharge planning issues: First goal is to affect better pain control, and stabilize her oxygen status, then will build to work towards goals of planning towards home. (12) DVT prophylaxis: Heparin subcu Subjective Visited multiple times today. This morning pain was still uncontrolled, after MATCHBOOK MAKER initiated, pain was better but still not great. At no time when she sedated confused or lethargic. Her shortness of breath was better as soon as she got oxygen on. Her back pain persists and that is the main problem, she does also have leg paresthesia type symptoms. She is somewhat tearful regarding her situation. Review of Systems Review of Systems: All systems reviewed & are unremarkable except as noted in HPI & below Physical Exam Physical Exam: General she is awake and alert and pain initially more comfortable but still appearing to be in a mild degree of pain later this afternoon. HEENT normocephalic atraumatic mucous membranes moist. Breathing unlabored no accessory muscle use good effort. Skin shows no rashes no pallor or icterus. Musculoskeletal exam shows left-sided paraspinal hypertonicity but she also has bony tenderness. Neuro shows cranial nerves II through XII be grossly intact Results & Data Vital Signs (Past 12 Hours) Vital Signs Temp Pulse Pulse Resp BP BP Pulse Ox 02/27/19 15:33 36.9 C 91 H 18 104/69 94 02/27/19 13:46 36.9 C 93 H 20 105/68 92 02/27/19 12:53 89 111/73 80/44 L 02/27/19 11:32 37.0 C 84 16 85/53 L 93 02/27/19 11:20 85 93/61 L 02/27/19 09:14 92 H 94 02/27/19 07:31 37.3 C 94 H 18 99/63 L 91 02/27/19 05:21 38.2 C H 103 H 20 94/59 L 91 PG Care Time/CCT Total # of Minutes Spent Total Time Spent with Patient: Total time spent is greater than 50% in coordination of care (as documented) at patient's floor/unit and/or counseling patient: (1) Anemia Anemia type: unspecified type Qualified Code(s): D64.9 - Anemia, unspecified
[2019-02-27] MEDS: DOCUSATE SODIUM 100 MG CAP PO SCH (20:19)
[2019-02-28] MEDS: VANCOMYCIN HCL 1,500 MG in SODIUM CHLORIDE 0.9% 500 ML IV SCH (05:43)
[2019-02-28] MEDS: CEFEPIME 2,000 MG in SYRINGE 7.5 ML IV SCH (05:44)
[2019-02-28] MEDS ORDERED: HYDROmorphone INJ 0.5 MG/0.5 ML SYR IV ONE (05:45)
[2019-02-28] MEDS: MoRPHine SULFATE CR 15 MG TABCR PO SCH ×2 (08:35→20:26)
[2019-02-28] MEDS: DOCUSATE SODIUM 100 MG CAP PO SCH ×2 (08:35→20:26)
[2019-02-28] MEDS: HEPARIN SOD 5,000 UNIT/0.5 ML VIAL SQ SCH (08:36)
[2019-02-28] MEDS: PREGABALIN 50 MG CAP PO SCH ×2 (09:09→20:26)
[2019-02-28] MEDS: HYDROmorphone HCL 0.5MG/ML 50 ML CASSETTE IV PRN ×3 (09:19→22:54)
[2019-02-28 09:26] LABS: Hematocrit (blood only) 23.2 % (37-47); Hemoglobin 6.9 g/dL (12.0-16.0); Mean Corpuscular Hgb Conc 29.7 g/dL (32-36); Mean Corpuscular Volume 101.8 fL (80-100); Mean Platelet Volume 8.3 fL (7.4-10.4); Platelet Count 152 K/uL (130-400); RDW Coefficient of Variation 15.7 % (11.5-14.5); RDW Standard Deviation 57.4 fL (36.4-46.3); Red Blood Count 2.28 M/uL (4.2-5.4); White Blood Count 8.54 K/uL (4.8-10.8)
[2019-02-28 09:41] LABS: Basophils # (auto) 0.04 K/uL (0-0.2); Basophils % (auto) 0.5 %; Eosinophils # (auto) 0.18 K/uL (0-0.5); Eosinophils % (auto) 2.1 %; Hypochromasia Present; Immature Granulocytes # (auto) 0.46 K/uL (0.00-0.02); Immature Granulocytes % (auto) 5.4 %; Lymphocytes # (auto) 0.39 K/uL (1.2-3.4); Lymphocytes % (auto) 4.6 %; Monocytes # (auto) 0.59 K/uL (0.11-0.59); Monocytes % (auto) 6.9 %; Neutrophils # (auto) 6.88 K/uL (1.4-6.5); Neutrophils % (auto) 80.5 %
[2019-02-28 10:19] LABS: BUN Creatinine Ratio 26.5 (10-20); Calcium 9.6 mg/dl (8.5-10.1); Est GFR (African American) 146.5; Est GFR (Non-African American) 126.4; Potassium 3.7 mmol/L (3.5-5.1)
[2019-02-28] MEDS: SODIUM CHLORIDE 0.9% 1000ML 1,000 ML IV SCH (10:33)
[2019-02-28] MEDS: LIDOCAINE 5% 1 PATCH TD SCH (12:29)
--- NOTE | 2019-02-28 14:12 | Consultation Report ---
DATE OF CONSULTATION: 02/28/2019 REASON FOR CONSULTATION: Widespread metastatic disease in a 43-year-old female patient with vulvar cancer. HISTORY OF PRESENT ILLNESS: Marina is a very pleasant and unfortunate 43-year-old female who presents to [facility] with subacute onset difficulty breathing, generalized weakness and intractable pain. The patient who is currently under Dr. Early's care was diagnosed with vulvar cancer earlier this spring. She was confirmed to suffer from stage III disease and was initially treated with chemoradiation utilizing weekly cisplatin again which completed on 12/08/2018. She had a very good clinical response to chemoradiation which was verified by gynecology who performed a direct examination post-treatment. According to Marina, Dr. Early had planned for followup PET scan to be performed in the next couple of weeks. Unfortunately, over the past 2 weeks, she has manifested a steady overall decline as described above. Factor symptoms became so severe, her could even get her out of bed and have to summon an ambulance. Her appetite has been minimal. Most of her pain is centered in the lower thoracic upper lumbar region. Upon presentation to our facility, she was worked up radiographically with CT scan of the chest, abdomen and pelvis. Unfortunately, scans confirmed disseminated metastatic disease involving the pulmonary parenchyma regional lymphadenopathy as well as a multitude of skeletal findings all suggestive of disease progression. She is being effectively treated with opioids and I visited her today with her at bedside to discuss where we go therapeutically. Again, Dr. Early will take over the service tomorrow and thus today's discussion will be quite general and ultimately a treatment decision will be made by Dr. Early. PAST MEDICAL HISTORY: Positive for polycystic ovarian syndrome, vulvar carcinoma stage III, morbid obesity. PAST SURGICAL HISTORY: Includes cholecystectomy, lymph node excision, vulvar resection, previous resection. MEDICATIONS: Prior to admission include both Zofran and Compazine as needed for nausea, morphine extended release 30 mg p.o. b.i.d., potassium chloride 20 mEq p.o. every other day, acetaminophen 1000 mg p.o. q. 6 hours p.r.n., Lomotil 1 tablet p.o. b.i.d. p.r.n., ibuprofen 200 mg p.o. q.i.d. p.r.n., norethindrone 1 tablet p.o. ____ and Silvadene cream apply topically b.i.d. p.r.n. to affected areas. ALLERGIES: No known drug allergies. SOCIAL HISTORY: She is a [id number] mom with 4 children. She is a nonsmoker, nondrinker. FAMILY HISTORY: Grandfather succumbed to colorectal cancer. No history of breast or gynecologic cancers. REVIEW OF SYSTEMS: As per HPI, most notably for generalized weakness, asthenia, intractable skeletal pain, and anorexia. SKIN: No rashes or lesions. No history of dermatoses. HEENT: She denies headaches, lightheadedness or dizziness. No acute visual or hearing deficits. No sinus symptoms, sore throat or dysphagia. LYMPH: No history of lymphoproliferative disease. CARDIAC: No history of coronary artery disease, no angina or palpitations. PULMONARY: Positive for shortness of breath, dyspnea on exertion. No cough or hemoptysis. GASTROINTESTINAL: Negative for abdominal pain, no nausea or vomiting, diarrhea or constipation, hematochezia or melena of stools. GENITOURINARY: Positive for occasional dysuria, pelvic pain attributable to prior radiation therapy. MUSCULOSKELETAL: Positive for generalized weakness. Positive for newly diagnosed skeletal metastatic disease. ENDOCRINE: Negative for diabetes or thyroid disease. NEUROLOGIC: Negative for seizure, stroke, or migraine headache. HEMATOLOGIC: Positive for anemia. PHYSICAL EXAMINATION: GENERAL: Ill-appearing 43-year-old morbidly obese female, awake, alert and appropriate, in no acute distress. VITAL SIGNS: Temperature 36.9, pulse 99, respiratory rate 18, blood pressure 115/73. SKIN: Warm, dry, noncyanotic without petechia, rash or ecchymosis. HEENT: Head is atraumatic, normocephalic. Eyes: PERRLA, EOMI. Sclerae nonicteric. No conjunctival injection. Nares patent without rhinorrhea or discharge. Throat clear. Tongue midline. Mucous membranes are moist. NECK: Supple. Trachea midline. HEART: Regular rate and rhythm. LUNGS: Expiratory wheezes heard in the posterior bases, predominantly. ABDOMEN: Obese, soft, nontender, nondistended. EXTREMITIES: No clubbing, cyanosis, or edema. Strength testing not performed. Pulses are intact. NEUROLOGICALLY: She is awake, alert and oriented x3. Again, motor and sensory testing not done. Cranial nerves are grossly intact otherwise. LABORATORY DATA: WBC count 8540, hemoglobin 6.9, platelet count 152,000. Sodium 141, potassium 3.7, chloride 111, carbon dioxide 24, creatinine 0.42, BUN 11. RADIOGRAPHIC DATA: CTA of the chest, extensive metastatic disease throughout the chest, progressed from films compared to August of 2018 including a pump in for pulmonary metastatic disease, mediastinal and hilar lymphadenopathy as well as metastatic chest wall nodules and lytic bony metastasis. Bony mets is noted at T6 and T7 resulting in pathologic compression deformities. Exophytic lesion within the superior pole of the left kidney is also suggestive of mets. IMPRESSION: 1. Declining performance status. 2. Disseminated metastatic vulvar carcinoma. 3. Severe anemia. 4. Intractable bone pain. 5. Anorexia. PLAN: Marina is a very pleasant unfortunate 43-year-old obese female patient of Dr. Early's with a stage III vulvar cancer status post chemoradiation which completed in November of this year. By all accounts, she had a very good clinical and radiographic response. Obviously, rapid progression demonstrated clinically and radiographically is concerning. The patient has been in decline over the past couple of weeks. She was last seen in our office on January 26 by the physician steam shovel runner and plan for surveillance radiographs to be done prior to follow up in February. She is very symptomatic, basically unable to ambulate with intractable back pain which has been well controlled with opioids. She is also profoundly anemic and should be transfused. Her was at bedside this morning and again discussions were very general and will ultimately defer treatment decisions to Dr. Early as he takes over service tomorrow. Generally speaking, metastatic gynecologic cancers such as vulvar cancers are approached in similar fashion, perhaps combination carboplatin and paclitaxel administered every 3 weeks. Briefly reviewed some of the side effects to anticipate. I also conveyed Marina now suffers from stage IV disease which is terminal and the goal of any therapy moving forward is to extend life while maintaining quality. I answered questions to Marina and 's satisfaction, but again I reminded them Dr. Early would engage more in depth when he speaks to them tomorrow. I agree with current medical management, perhaps a unit or 2 of packed RBCs would be helpful moving forward. Thank you very much for allowing me to participate in her care. If you have any questions or concerns, feel free to contact me at any time. ROBERTO
[2019-02-28] MEDS ORDERED: SODIUM CHLORIDE 0.9% 250 ML IV PRN (15:19)
--- NOTE | 2019-02-28 15:46 | Hospitalist Progress Note ---
Date of Service February 28, 2019 Assessment & Plan (1) Hypoxia: Related to metastases to lungs, oxygen and supportive care. Pain control may help her be able to breathe more deeply too. -Highly likely to need oxygen for the indefinite foreseeable future (2) Anemia: Follow. Given treatment recommendations by hematology/oncology, transfusion does appear to be warranted as follow-up treatment is likely to be suppressive. Will give 2 units. (3) Shortness of breath: See above under hypoxia, improved today (4) Weakness: Relates to hypoxia and metastatic cancer. Continue supportive care (5) Metastatic cancer: Will ask radiation oncology if it is possible to affect her some symptom relief by radiating her thoracic spine region. Appreciate hematology/oncology input. (6) Vulva cancer: Hematology/oncology input appreciated. Agree unfortunately her situation does appear quite grave, but appreciate that there are other possible treatment options to explore that may extend her life given her young age. (7) Lower extremity weakness: Seems to relate to spine findings, radiation oncology input as above. Given the severity of her pain, and the fact that it does seem to relate almost directly to her thoracic pathologic fractures, will also ask spine to see her for thoughts on pain control, as well as to have a safety net should she show any abrupt deterioration. (8) Pain management: Pain control slowly improving, escalate Dilaudid IT INFRASTRUCTURE ENGINEER slightly to 0.5 per dose, later follow-up seems to suggest this is helping some. Also initiated Lyrica, risks and benefits discussed, will titrate as aggressively as she can tolerate. (9) Pleural effusion: Related to the malignancy. Right now does not appear to be large enough to drain with any significant improvement in her oxygenation (10) Elevated troponin: Nonspecific. Certainly does not show any findings consistent with an OR (11) Discharge planning issues: -Oxygen status stabilized, will likely need home oxygen once she is able to go home -Pain control improving, will then need to work towards transition to oral/transdermal regimen once we have good stability with pain control -Oncology formulating plans for next steps (12) DVT prophylaxis: Love Subjective Seen twice today. This morning feeling better with pain than yesterday, but still not good enough controlled. Pain predominantly in her back. Does have paresthesias in the legs. No other new symptoms. Shortness of breath seems better. This afternoon revisited, nursing noted that she was better with pain control, whenever I enter the room she is sleeping and appearing comfortable, therefore I did not wake her given that she finally appeared to have some comfort. Review of Systems Review of Systems: All systems reviewed & are unremarkable except as noted in HPI & below Physical Exam Physical Exam: General she is pleasant no distress. HEENT normal cephalic atraumatic mucous members moist. Breathing unlabored no accessory muscle use good effort. Skin shows no rashes no pallor or icterus. Neuro shows no new focal deficits. Results & Data Vital Signs (Past 12 Hours) Vital Signs Temp Pulse Pulse Resp BP Pulse Ox 02/28/19 12:00 36.9 C 106 H 18 121/73 92 02/28/19 07:46 36.9 C 99 H 18 115/73 91 02/28/19 04:00 37 C 105 H 20 115/76 95 PG Care Time/CCT Total # of Minutes Spent Total Time Spent with Patient: Total time spent is greater than 50% in coordination of care (as documented) at patient's floor/unit and/or counseling patient: (1) Anemia Anemia type: unspecified type Qualified Code(s): D64.9 - Anemia, unspecified
[2019-02-28] MEDS: OXYCODONE HCL IR 5 MG TAB (IMMEDIATE RELEASE) PO PRN (22:32)
[2019-03-01 06:29] LABS: Hematocrit (blood only) 26.6 % (37-47); Hemoglobin 8.3 g/dL (12.0-16.0); Mean Corpuscular Hgb Conc 31.2 g/dL (32-36); Mean Platelet Volume 8.6 fL (7.4-10.4); Nucleated RBC # (auto) 0.03 K/uL (0-0); Nucleated RBC % (auto) 0.3 %; Platelet Count 148 K/uL (130-400); RDW Coefficient of Variation 19.1 % (11.5-14.5); RDW Standard Deviation 66.3 fL (36.4-46.3)
[2019-03-01 06:55] LABS: Basophils # (auto) 0.02 K/uL (0-0.2); Basophils % (auto) 0.2 %; Eosinophils # (auto) 0.15 K/uL (0-0.5); Eosinophils % (auto) 1.6 %; Immature Granulocytes # (auto) 0.46 K/uL (0.00-0.02); Lymphocytes # (auto) 0.34 K/uL (1.2-3.4); Lymphocytes % (auto) 3.7 %; Monocytes # (auto) 0.82 K/uL (0.11-0.59); Monocytes % (auto) 8.9 %; Neutrophils # (auto) 7.41 K/uL (1.4-6.5); Neutrophils % (auto) 80.6 %
--- NOTE | 2019-03-01 07:12 | Family Medicine Progress Note ---
Date of Service March 01, 2019 Assessment & Plan (1) Metastatic cancer: Ms. Sow is a 43 year old female with a past medical history of vulvar cancer s/p excision, radiation and chemotherapy who presents to [facility] ED due to shortness of breath and weakness. She was found to be hypoxic in the emergency department, with an oxygen saturation of 89% on room air. Her chest CTA unfortunately revealed extensive metastatic disease throughout the chest, this is new from prior imaging. She was admitted to [facility] for further investigation as well as pain management. Hypoxia -CTA negative for PE -CTA showed extensive metastatic disease throughout the chest, with small bilateral pleural effusion - likely the cause of her hypoxia -Continue oxygen as needed - anticipate patient will need oxygen on discharge Metastatic carcinoma -Imaging reveals metastases in the lungs, bony mets at T6 and T7 with resultant compression deformities, a lesion in the superior pole of the left kidney, and a necrotic nodule in the lower left rectus abdominis muscle -> these findings are all new from her prior PET scan on September 14, 2018 -Oncology consulted for further management -> recommend u/s of thoracic area to evaluate effusions -> will require biopsy to evaluate noted malignancy Vulvar Carcinoma -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 Completed chemotherapy and radiation, with good results. -has resultant ulcerations in vulvar and perineal area from radiation treatment -> continue pain regimen -wound care consult & lidocaine jelly ordered -oncology consultation as above Pain management -Patient with severe pain to the vulvar area, as well as back (due to bony mets) -Patient takes 30 mg of morphine ER twice daily at home, with Tylenol and ibuprofen for breakthrough pain -home regimen of morphine ordered, as well as oxycodone 5mg prn for pain -> this was insufficient for pain control & patient was subsequently placed on a dilaudid INTERNET NETWORK SPECIALIST on 02/27 -> increase dilaudid [employer]WORK SPECIALIST from 0.5 to 0.75 for breakthrough pain, no continuous infusion -> d/c home regimen and start 8mg dilaudid BID as long acting regimen -lyrica initiated - increase regimen to 75mg bid Fever - resolved -pt had fever of 38.2 C on day of admission -empirically started on cefepime and vancomycin -bcx negative x48 hours, no signs or symptoms of infection -abx discontinued on 02/28, continue to monitor, but suspect fever related to malignancy vs. atelectasis Anemia -s/p 2 units of transfusion of prbcs on 02/28 for hgb of 6.9 -Hgb improved to 8.3 today, continue to monitor Bilateral lower extremity weakness -CTA showed central canal stenosis, likely contributing to bilateral lower extremity weakness -rad onc consulted -> pt considering palliative radiation to thoracic & lumbar spine -ortho spine consult ordered, recommendations appreciated CODE STATUS: Full Disposition: anticipate d/c home once adequate pain control DVT Prophylaxis: enoxaparin 40mg SQ daily (2) Vulva cancer: (3) Elevated troponin: (4) Pleural effusion: (5) Pain management: (6) Lower extremity weakness: (7) Hypoxia: (8) Anemia: (9) Shortness of breath: (10) Weakness: Supervising Physician Co-Signing Physician Notes I personally examined the patient and verified all norman points of history and exam, discussed case, and agree with decision making with Dr Elam. After increase in the Dilaudid INTERNET NETWORK SPECIALIST, patient notes more adequate pain control. Discussed overall goal of pain control plan. She expressed understanding and appreciation of this plan. She denies any feeling groggy sedated drunk weak or slurred from the medications. With the increase that she is noting better pain control. Discussed overall situation, she has very good questions and expressed a good understanding of her unfortunately terrible prognosis. Offered empathy and support, she asked that I would revisit later in the day to discuss with her , nursing paged once he was there and we had a good and in-depth conversation as well, he expressed good understanding. Vitals noted, in general she is lying in bed on her right side not appearing in any significant distress but not appearing oversedated either. Breathing is unlabored no accessory muscle use and no respiratory suppression. Skin shows no rashes no pallor or icterus. Metastatic vulvar cancer with thoracic metastases causing significant back pain, and lung mets causing significant hypoxia -Hypoxia is been stabilized with supplemental oxygen. -Pain titration ongoing, but is improving, right now she is not showing any significant adverse mental/neurocognitive side effects to the medications -We discussed multiple lines of planning, right now given the severity of her pain, it seems that trying to progress towards thoracic radiation would be beneficial for her symptoms, but right now she does not believe she would be a lie still for it. As we continue to escalate pain medications if she is able to she will give it strong consideration. -In terms of palliative chemo, right now she notes "I do not want to do anything that would just prolong things" and she notes this even really before discussions of true risk and benefit are undertaken. She notes she is at peace with her dire prognosis, and mostly feels sadness for her children who will grow up without a mother. -Empathy and support offered extensively to patient and . Otherwise as above Subjective Ms. Sow reports she remains in quite a bit of pain. She states that her pain is down to a 6/10, but only w/frequent use of her INTERNET NETWORK SPECIALIST pump and laying still. She states that her pain was quite severe when her sheets were changed this morning. She notes that Dr. Becker was in earlier to discuss radiation to her back, but that she is nervous about how she will physically be able to do this given the amount of pain that she is in. She states her pain is worst in her back. She reports decreased appetite and has not yet had a bowel movement. She denies any abdominal pain. Review of Systems Constitutional: + fatigue, + weakness and + anorexia; no fever and no chills Respiratory: no cough and no chest congestion Cardiovascular: no chest pain, no edema and no calf pain Gastrointestinal: + constipation; no abdominal pain, no nausea and no vomiting Musculoskeletal: + back pain and + muscle weakness (Bilateral legs) Neurologic: + generalized weakness and + numbness (Bilateral legs); no falls Physical Exam Constitutional: + ill appearing, + obese and cooperative laying on her rig ht side, w/pillows propped under her left side Respiratory: normal respiratory effort, lungs clear to auscultation Cardiovascular: RRR, no murmur, no edema Results & Data Vital Signs (Past 12 Hours) Vital Signs Temp Pulse Pulse Resp BP BP Pulse Ox 03/01/19 04:00 37 C 112 H 20 102/66 93 02/28/19 23:41 36.9 C 74 20 128/72 96 02/28/19 22:02 37.1 C 103 H 18 130/72 95 02/28/19 21:00 37.1 C 102 H 18 110/71 94 02/28/19 20:30 37 C 104 H 18 114/74 95 02/28/19 20:15 36.9 C 101 H 18 97/65 L 95 02/28/19 19:58 37.0 C 101 H 18 103/66 94 PG Care Time/CCT Total # of Minutes Spent Total Time Spent with Patient: Total time spent is greater than 50% in coordination of care (as documented) at patient's floor/unit and/or counseling patient: Resident Activity Tracking Resident Involvement: Resident Care Provided Care Provided: Adult Hospital Medicine (1) Anemia Anemia type: unspecified type Qualified Code(s): D64.9 - Anemia, unspecified
[2019-03-01] MEDS: MoRPHine SULFATE CR 15 MG TABCR PO SCH (08:19)
[2019-03-01] MEDS: DOCUSATE SODIUM 100 MG CAP PO SCH ×2 (08:19→20:33)
[2019-03-01] MEDS: PREGABALIN 50 MG CAP PO SCH (08:19)
[2019-03-01] MEDS: ENOXAPARIN INJ 40 MG/0.4 ML SYR SQ SCH (08:19)
[2019-03-01] MEDS ORDERED: MICONAZOLE NITRATE POWDER 43 GM ONE (08:31)
--- NOTE | 2019-03-01 09:14 | Radiation OncologyConsultation ---
Date of Consultation March 01, 2019 Assessment & Plan (1) Vulva cancer: Assessment: Ms. Sow is a 43-year-old female who previously presented with locally advanced vulvar cancer treated with chemotherapy and radiation therapy which completed in November 2018. Unfortunately, the patient now presents with newly diagnosed metastatic disease, specifically with disease involving the mid thoracic spine and lumbar spine. The patient was admitted to the hospital due to poor pain control and her new diagnosis of metastatic disease. The patient has been seen by medical oncology who is recommended consideration of potential palliative chemotherapy palliative radiation therapy. Treatment Options: 1. Palliative radiation therapy to thoracic spine and lumbar spine. 2. Palliative chemotherapy for metastatic disease. 3. Best supportive care. Recommendation: Palliative radiation therapy to mid thoracic spine and lumbar spine with consideration of systemic chemotherapy. Plan: 1. Patient is unsure if she wants radiation therapy. I have instructed her to let her nurse know if she wants radiation therapy and I can bring her down as soon as possible for CT simulation for treatment planning for radiation therapy. 2. Medical oncology recommendations appreciated. 3. Continue all other care as per primary medical team. Rationale/Explanation of Treatment: We explained the indications, alternatives, benefits, risks and side effects of external beam radiation therapy. We then discussed radiation therapy side effects for treatment which include, but are not limited to, skin erythema, dry/moist desquamation of the skin, hyperpigmentation, telangiectasias, damage to the heart and development of cardiovascular disease, damage to the lungs including radiation pneumonitis, pulmonary fibrosis, decrease in pulmonary function, cough, fistula formation, tracheal stenosis, esophageal stenosis, esophageal perforation, dysphagia, nausea, vomiting, ulcers in stomach/bowel, gastritis, gastric perforation, bowel perforation, bowel obstruction, weight loss, dehydration, decreased appetite, liver damage including hepatitis and liver failure, damage to the kidneys includ ing decreased renal function and renal failure, spinal cord damage including myelopathy, fatigue and secondary malignancy. We have explained to the patient that there is an increased risk of overlap from the previous course of radiation therapy and the current course of radiation therapy which can increase the risk of all acute and late side effects of radiation therapy. The patient had multiple questions which were answered to their full satisfaction. Thank you for allowing us to participate in the care of this patient. This chart was completed in part utilizing [employer] Voice Recognition software. Attempts were made to minimize the grammatical errors, random word insertions, pronoun errors and incomplete sentences. Any formal questions or concerns about the content, text or information contained within the body of this dictation should be directly addressed to the provider for clarification. Julius Becker MD Department of Radiation Oncology [facility] Present on Admission?: Yes History of Present Illness Attending Physician: Sathish Rojas, DO History of Present Illness 08/11/2018. Patient presents to Dr. Tamayo's office due to pain involving perineum. Evaluation reveals a large cranial defect with induration extending from the vaginal introitus to the rectum. Dr. Tamayo referred the patient to Dr. Lazaro. 08/21/2018. In office biopsy of vulvar lesion with Dr. Lazaro. Dr. Lazaro describes "an endophytic lesion at the posterior fourchette with heaped up tissue laterally on both sides of the defect. The vagina was without mucosal lesions. Unable to do a bimanual examination due to pain. Biopsy reveals poorly differentiated carcinoma favoring squamous cell carcinoma. 08/31/2018. Follow-up evaluation with Dr. Lazaro. Dr. Lazaro has recommended against surgery given concern for obtaining negative margins. Dr. Lazaro has recommended definitive chemotherapy and radiation therapy. 09/11/2018. MRI of Pelvis. IMPRESSION: 1. There is a 4.9 x 3.7 cm irregular area of thickening and enhancement in the expected location of the vulva which likely corresponds the patient's history of malignancy. This appears to invade into the anterior wall of the anus and within the distal vagina. The upper to mid vagina remains intact. 2. Necrotic and enlarged bilateral lymph nodes consistent with metastatic disease. 3. There is minimal enhancement seen along the inferior/medial borders of the bilateral obturator internus muscles at the anterior ischiorectal fat as described above. This is concerning for spread of malignancy. 09/14/2018. PET/CT. IMPRESSION: 1. Irregular markedly hypermetabolic mass of the vulva, inferior vagina, perineum and anterior wall of the anus measures up to 4.9 cm compatible with patient's known primary malignancy. 2. Hypermetabolic bilateral inguinal chain adenopathy compatible with metastasis. 3. No additional hypermetabolic adenopathy or evidence of metastatic disease within the chest, abdomen or pelvis. 10/19/2018 - 12/08/2018. Pelvic chemotherapy and radiation therapy. 02/26/2019. CT Chest. IMPRESSION: 1. Extensive metastatic disease throughout the chest has progressed from 09/14/2018 manifested by pulmonary metastasis, metastatic mediastinal and hilar adenopathy, metastatic chest wall nodules and lytic bony metastasis. 2. Bony metastasis at T6 and T7 results in pathologic compression deformities. Soft tissue component at T6 involves the right neuroforaminal distribution and epidural space resulting in at least mild central canal stenosis. 3. Small bilateral pleural effusions, likely malignant. 4. Exophytic lesion of the about the super pole left kidney is also suggestive of metastasis, new from comparison. 02/26/2019. CT of Abdomen/Pelvis. IMPRESSION: 1. Extensive metastatic disease throughout the chest has progressed from 09/14/2018 manifested by pulmonary metastasis, metastatic mediastinal and hilar adenopathy, metastatic chest wall nodules and lytic bony metastasis. 2. Bony metastasis at T6 and T7 results in pathologic compression deformities. Soft tissue component at T6 involves the right neuroforaminal distribution and epidural space resulting in at least mild central canal stenosis. 3. Small bilateral pleural effusions, likely malignant. 4. Exophytic lesion of the about the super pole left kidney is also suggestive of metastasis, new from comparison. 02/28/2019. Medical oncology consultation with Dr. Acosta. Dr. Acosta has recommended palliative therapy including potentially systemic therapy and/or radiation therapy. Allergies Allergy/AdvReac Type Severity Reaction Status Date / Time No Known Allergies Allergy Mild Verified 02/26/19 16:39 Home Medications Home Medications Medication Instructions Recorded Confirmed Type ondansetron 8 mg oral soluble film 8 mg PO Q8H PRN ea 10/19/18 02/26/19 History prochlorperazine maleate 10 mg 10 mg PO Q6H PRN tab 10/19/18 02/26/19 History tablet morphine ER 30 mg capsule,extended 30 mg PO Q12H cap 01/14/19 02/26/19 History release 24 hr multiphase potassium chloride ER 20 mEq 20 meq PO Q OTHER DAY 01/14/19 02/26/19 History tablet,extended release acetaminophen [Tylenol Extra 1,000 mg PO Q6H PRN 02/26/19 02/26/19 History Strength] diphenoxylate-atropine [Lomotil] 1 tab PO BID PRN 02/26/19 02/26/19 History ibuprofen 200 mg PO QID PRN 02/26/19 02/26/19 History norethindrone ac-eth estradiol 1 tab PO UD 02/26/19 02/26/19 History [Margarito 1.5 (21)] silver sulfadiazine [Silvadene] 1 applic TOP BID PRN 02/26/19 02/26/19 History Patient History Medical History Morbid obesity PCOS (polycystic ovarian syndrome) Vulvar carcinoma PLAN FOR FUTURE CHEMO/RADIATION PER HEME/ONC NOTE Surgical History History of cholecystectomy History of lymph node excision History of surgery VULVAR RESECTION WITH LNB= 08/2018; ON LOVENOX POST-OP (TO BE COMPLETED PRIOR TO SURGERY PER PATIENT) Previous section Family History Mother No problems noted. Father No problems noted. 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 Musculoskeletal: Back Pain which radiates to both sides. She states it is in the mid-back. Cannot lay flat on her back. Physical Exam Constitutional: + ill appearing, + obese and + in distress Eyes: PERRL, conjunctivae normal, anicteric sclerae ENMT: external ear and nose normal, oropharynx normal Neck: trachea midline, no thyromegaly Respiratory: normal respiratory effort, lungs clear to auscultation Cardiovascular: RRR, no murmur, no edema Musculoskeletal: Tender to palpation in her mid-thoracic spine. Results Additional Studies 02/26/19 16:16 ECG 12 lead EKG Stat XR chest 1V portable Stat 02/26/19 18:07 CT abd pelvis IV con only Stat CT angio chest PE protocol Stat 02/27/19 08:00 ECG 12 lead EKG Routine 03/01/19 08:42 US effusion-chest/mediastinum Routine Time Spent Attending I spent 35 minutes for this consultation, which included obtaining clinical information, performing a physical exam, recommending a plan of action and answering questions. Greater than 50% of the time spent was direct face to face interaction with the patient.
[2019-03-01] MEDS ORDERED: MICONAZOLE NITRATE POWDER 43 GM EXT PRN (09:19)
--- NOTE | 2019-03-01 10:08 | Ultrasound Report ---
US effusion-chest/mediastinum HISTORY: 43 years-old Female evaluate b/l lung effusion, ?malignancy follow-up study in a patient wi th small bilateral pleural effusions COMPARISON: CTA of the chest 02/26/2019 TECHNIQUE: Multiple real time sonographic images of the chest were obtained assessing grayscale appea kelsey. FINDINGS: Small left-sided pleural effusion with volume of 212 mL. Small right pleural effusion, volume of 164 mL.. Atelectatic lung is noted adjacent to the bilateral pleural effusions. IMPRESSION: Small bilateral pleural effusions. The above report was generated using voice recognition software. It may contain grammatical, syntax o r spelling errors. Electronically signed by: Robbie Kohler M.D. 03/01/2019 10:07 AM
[2019-03-01] MEDS: SODIUM CHLORIDE 0.9% 1000ML 1,000 ML IV SCH (10:28)
[2019-03-01] MEDS: HYDROmorphone HCL 0.5MG/ML 50 ML CASSETTE IV PRN ×2 (11:08→13:29)
[2019-03-01] MEDS ORDERED: LACTATED RINGER'S 1,000 ML IV SCH (11:15)
[2019-03-01] MEDS: LIDOCAINE 5% 1 PATCH TD SCH (12:02)
--- NOTE | 2019-03-01 16:38 | Hematology/Oncology Prog Note ---
Date of Service March 01, 2019 Assessment & Plan (1) Vulva cancer: I reviewed her scans personally and with radiology. The appearance is obviously very concerning for metastatic disease. We discussed a possible biopsy of what appears to be either pleural fluid or pleural plaque, particularly along her right lower boggs. I asked her primary team to order an ultrasound of her chest to evaluate that area. If it is amenable to biopsy, we will obtain one prior to her leaving the hospital. Radiation oncology have also been consulted to evaluate her for palliative RT and I encouraged that evaluation. Present on Admission?: Yes (2) Pain management: I would consult palliative care, as her pain is not controlled at all at the moment. They may be able to assist with adjustments to her BANK MANAGER. We will also proceed with RT as noted above, which should help some with the pain. Present on Admission?: Yes Subjective Ms. Sow was uncomfortable in pain during our encounter today. The pain localized to her low back and was 10/10. She was using her BANK MANAGER but had maxed out her current dosage. Review of Systems Review of Systems: Pertinent positives as per HPI, but ROS was limited by the patient's significant pain Physical Exam Constitutional: + acute distress (secondary to pain) and + ill appearing Respiratory: + tachypneic; no respiratory distress Cardiovascular: Rate/Rhythm: regular rate and + tachycardic Extremities: no edema Gastrointestinal (Abdomen): normal bowel sounds, soft, nontender, no hepatosplenomegaly Psychiatric: Orientation: alert and oriented x 3 Affect: + anxious affect Results & Data Vital Signs (Past 12 Hours) Vital Signs Temp Pulse Resp BP Pulse Ox 03/01/19 15:41 36.8 C 112 H 16 96/59 L 92 03/01/19 11:13 36.9 C 107 H 16 92/55 L 93 03/01/19 07:40 36.9 C 110 H 20 95/61 L 93 Laboratory Results Abnormal lab results 02/26/19 03/01/19 Range/Units 18:20 06:04 RBC 2.80 L (4.2-5.4) M/uL Hgb 8.3 L (12.0-16.0) g/dL Hct 26.6 L (37-47) % MCHC 31.2 L (32-36) g/dL RDW Std Deviation 66.3 H (36.4-46.3) fL RDW Coeff of Karthik 19.1 H (11.5-14.5) % Immature Gran # (Auto) 0.46 H (0.00-0.02) K/uL Neut # (Auto) 7.41 H (1.4-6.5) K/uL Lymph # (Auto) 0.34 L (1.2-3.4) K/uL [place] # (Auto) 0.82 H (0.11-0.59) K/uL Absolute Nucleated RBC 0.03 H (0-0) K/uL Crossmatch See Detail
[2019-03-01] MEDS ORDERED: NURSING DECISION MEDICATION ONE (20:00)
[2019-03-01] MEDS: OXYCODONE HCL 15 MG TABCR (OXYCONTIN) PO SCH (20:33)
[2019-03-01] MEDS: PREGABALIN 75 MG CAP PO SCH (20:33)
[2019-03-02] MEDS: HYDROmorphone HCL 0.5MG/ML 50 ML CASSETTE IV PRN ×2 (04:04→13:53)
[2019-03-02 06:13] LABS: Hematocrit (blood only) 26.4 % (37-47); Hemoglobin 7.9 g/dL (12.0-16.0); Mean Corpuscular Hgb Conc 29.9 g/dL (32-36); Mean Corpuscular Volume 97.8 fL (80-100); Mean Platelet Volume 8.7 fL (7.4-10.4); Nucleated RBC # (auto) 0.02 K/uL (0-0); Nucleated RBC % (auto) 0.2 %; Platelet Count 168 K/uL (130-400); RDW Coefficient of Variation 18.5 % (11.5-14.5); RDW Standard Deviation 64.4 fL (36.4-46.3); White Blood Count 8.29 K/uL (4.8-10.8)
[2019-03-02 06:37] LABS: Basophils # (auto) 0.03 K/uL (0-0.2); Basophils % (auto) 0.4 %; Eosinophils # (auto) 0.17 K/uL (0-0.5); Eosinophils % (auto) 2.1 %; Immature Granulocytes # (auto) 0.43 K/uL (0.00-0.02); Immature Granulocytes % (auto) 5.2 %; Lymphocytes # (auto) 0.38 K/uL (1.2-3.4); Lymphocytes % (auto) 4.6 %; Monocytes # (auto) 0.67 K/uL (0.11-0.59); Monocytes % (auto) 8.1 %; Neutrophils # (auto) 6.61 K/uL (1.4-6.5); Neutrophils % (auto) 79.6 %; RBC Morphology Unremarkable
[2019-03-02 06:47] LABS: BUN Creatinine Ratio 29.4 (10-20); Calcium 10.2 mg/dl (8.5-10.1); Est GFR (African American) 146.5; Est GFR (Non-African American) 126.4; Potassium 3.8 mmol/L (3.5-5.1)
--- NOTE | 2019-03-02 06:53 | Family Medicine Progress Note ---
Date of Service March 02, 2019 Assessment & Plan (1) Metastatic cancer: Ms. Sow is a 43 year old female with a past medical history of vulvar cancer s/p excision, radiation and chemotherapy who presents to [facility] ED due to shortness of breath and weakness. She was found to be hypoxic in the emergency department, with an oxygen saturation of 89% on room air. Her chest CTA unfortunately revealed extensive metastatic disease throughout the chest, this is new from prior imaging. She was admitted to [facility] for further investigation as well as pain management. Metastatic carcinoma -Imaging reveals metastases in the lungs, bony mets at T6 and T7 with resultant compression deformities, a lesion in the superior pole of the left kidney, and a necrotic nodule in the lower left rectus abdominis muscle -> these findings are all new from her prior PET scan on September 14, 2018 -Oncology consulted for further management -> will require biopsy to evaluate noted malignancy, however pt states she does not want a biopsy at this time. Overall goal is to return home, be comfortable, and spend time with family Bilateral lower extremity paralysis -CTA showed central canal stenosis, likely the cause of her bilateral lower extremity paralysis & absence of sensation given her absence of sensation begins at approx T7, which is where her pathology is -discussed this extensively w/patient and what this means going forward. Discussed option of having ortho spine evaluate patient for potential surgery - pt states she does not want to see ortho spine and wants to return home & be comfortable. Discussed the fact that this will not be reversible, but may confer her better pain control as she is no longer able to feel her ulcerations -garcia catheter will likely be a permanent solution now -will have to be more aggressive with scheduled bowel regimen as pt is at increased risk of constipation with group home opioid use. 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 Completed chemotherapy and radiation, with good results. -has resultant ulcerations in vulvar and perineal area from radiation treatment -> continue pain regimen -wound care consult & lidocaine jelly ordered Pain management -Patient with severe pain to the vulvar area, as well as back (due to bony mets) -Patient takes 30 mg of morphine ER twice daily at home, with Tylenol and ibuprofen for breakthrough pain -pt placed on a dilaudid BUS MATRON on 02/27, which was increased on 03/02 w/addition of 30mg BID of oxycontin. With increasing long acting pain medication, as well as decreased sensation below T7, pt has required far less BUS MATRON -> goal is to transition to purely oral analgesics - if this is not feasible, will discharge pt with BUS MATRON -> will add in prn percocet to pain regimen today for breakthrough pain, w/BUS MATRON as a back up in case we do not achieve adequate analgesia w/oral regimen -lyrica initiated this admission - increase regimen to 100mg bid Hypoxia -CTA negative for PE -CTA showed extensive metastatic disease throughout the chest, with small bilateral pleural effusion - likely the cause of her hypoxia -Continue oxygen as needed - anticipate patient will need oxygen on discharge Fever - resolved -pt had fever of 38.2 C on day of admission -empirically started on cefepime and vancomycin -bcx negative x48 hours, no signs or symptoms of infection -abx discontinued on 02/28, continue to monitor, but suspect fever related to malignancy vs. atelectasis Anemia -s/p 2 units of transfusion of prbcs on 02/28 for hgb of 6.9 -Hgb improved to 7.9 today, continue to monitor, transfuse for Hgb <7 CODE STATUS: Full Disposition: anticipate d/c home once adequate pain control. Preparing for d/c tomorrow or day after, depending on pain control and how quickly we are able to arrange hospital equipment at home DVT Prophylaxis: enoxaparin 40mg SQ daily (2) Vulva cancer: (3) Elevated troponin: (4) Pleural effusion: (5) Pain management: (6) Lower extremity weakness: (7) Hypoxia: (8) Anemia: (9) Shortness of breath: (10) Weakness: Supervising Physician Co-Signing Physician Notes I personally examined the patient and verified all norman points of history and exam, discussed case, and agree with decision making with Dr Elam. New very dense numbness of legs, numbness across abdomen. Pain fortunately improved. Does not want any further treatment, does not want surgery to stabilize thoracic spine in spite of current deterioration, aware of her situation and consequences. present and discussed at length with both of them. Vitals noted, in general she is lying in bed on her right side not appearing in any significant distress but not appearing oversedated either. Breathing is unlabored no accessory muscle use and no respiratory suppression. Skin shows no rashes no pallor or icterus. Metastatic vulvar cancer with thoracic metastases causing significant back pain, and lung mets causing significant hypoxia -Hypoxia is been stabilized with supplemental oxygen. -They seem quite aware of her situation, and do not wish to pursue measures they deem to be futile. At this point mostly she wants to try to get home as quickly as possible to be able to spend as much time she is she has left with her and children. With her new findings consistent with spinal cord compression, the urgency to try to get her home before she is unable to do so is increasing. And working with case management, we will work with hospice to try to affect a good plan for pain control at home, and to meet her needs there. The unfortunate blessing of her current situation is that the spinal cord compression seems to have affected improved pain. Continue Garcia drainage, continue bowel regimen. -Empathy and support offered extensively to patient and . Otherwise as above Subjective Ms. Sow reports her pain is improving with the alterations in her pain regimen. She states she was able to sleep through the night, and reports that she did not use her BUS MATRON throughout the night. She did state she woke up in a considerable amount of pain, but that this has decreased to a 4/10. She reports feeling more comfortable now that she has decreased sensation in her perineal area and legs. She states her overall goal is to be comfortable and return home, stating that "she knows she is going." Review of Systems Constitutional: + fatigue, + weakness and + anorexia; no fever and no chills Respiratory: no cough and no dyspnea Cardiovascular: no chest pain, no palpitations, no syncope and no edema Gastrointestinal: + constipation; no abdominal pain, no nausea and no vomiting Neurologic: + generalized weakness, + paralysis (b/l legs) and + loss of sensation (from 11th/12th ribs down); no falls Physical Exam Constitutional: + ill appearing, + obese and cooperative Respiratory: normal respiratory effort, lungs clear to auscultation Cardiovascular: RRR, no murmur, no edema Gastrointestinal (Abdomen): Percussion/Palpation: abdomen soft; abdomen nontender Neurologic: 0/5 power in b/l LE, unable to wiggle toes. No sensation to light touch or pressure over b/l LE, up to level of 11th/12th ribs (approx T7) Results & Data Vital Signs (Past 12 Hours) Vital Signs Temp Pulse Pulse Resp BP BP Pulse Ox 03/02/19 04:00 114 H 106/77 03/02/19 03:49 37.2 C 115 H 20 80/50 L 93 03/01/19 23:17 37.0 C 110 H 24 93/60 L 92 03/01/19 19:18 37.0 C 109 H 20 112/72 92 PG Care Time/CCT Total # of Minutes Spent Total Time Spent with Patient: Total time spent is greater than 50% in coordination of care (as documented) at patient's floor/unit and/or counseling patient: Resident Activity Tracking Resident Involvement: Resident Care Provided Care Provided: Adult Hospital Medicine (1) Anemia Anemia type: unspecified type Qualified Code(s): D64.9 - Anemia, unspecified
[2019-03-02] MEDS ORDERED: POLYETHYLENE (MIRALAX) 17 GM PACK PO PRN (07:51)
[2019-03-02] MEDS: PREGABALIN 75 MG CAP PO SCH (08:55)
[2019-03-02] MEDS: DOCUSATE SODIUM 100 MG CAP PO SCH ×2 (08:55→21:07)
[2019-03-02] MEDS: POLYETHYLENE (MIRALAX) 17 GM PACK PO SCH (08:55)
[2019-03-02] MEDS: OXYCODONE HCL 15 MG TABCR (OXYCONTIN) PO SCH ×2 (08:55→21:07)
[2019-03-02] MEDS: LIDOCAINE 5% 1 PATCH TD SCH (11:19)
[2019-03-02] MEDS: ENOXAPARIN INJ 40 MG/0.4 ML SYR SQ SCH (11:19)
[2019-03-02] MEDS: OXYCODONE/ACETAMINOPHEN 10-325 TAB PO PRN ×2 (11:20→17:48)
--- NOTE | 2019-03-02 12:56 | Radiation Oncology Progress Nt ---
Date of Service March 02, 2019 Assessment & Plan (1) Vulva cancer: I spoke with patient and family today. The patient does not want radiation therapy at this time. I still offered her treatment in the future if she does not get significant pain relief and wants to try treatment. I have given our contact information to the family. I encouraged them to call us if she changes her mind. Follow up as needed. Signing off on patient unless contacted by primary medical team.
[2019-03-02] MEDS: SODIUM CHLORIDE 0.9% 1000ML 1,000 ML IV SCH (13:59)
[2019-03-02] MEDS ORDERED: DEXAMETHASONE SOD PHOSPHATE 4 MG in SYRINGE 0 ML IV STA (17:12)
[2019-03-02] MEDS: PREGABALIN 100 MG CAP PO SCH (21:07)
[2019-03-02] MEDS: DEXAMETHASONE SOD PHOSPHATE 4 MG in SYRINGE 0 ML IV SCH (21:10)
[2019-03-03] MEDS: HYDROmorphone HCL 0.5MG/ML 50 ML CASSETTE IV PRN (02:30)
[2019-03-03] MEDS: SODIUM CHLORIDE 0.9% 1000ML 1,000 ML IV SCH (04:40)
[2019-03-03 08:21] VITALS: TEMP 99; O2SAT 93
[2019-03-03] MEDS: OXYCODONE/ACETAMINOPHEN 10-325 TAB PO PRN (08:29)
[2019-03-03] MEDS: ENOXAPARIN INJ 40 MG/0.4 ML SYR SQ SCH (08:29)
[2019-03-03] MEDS: PREGABALIN 100 MG CAP PO SCH (08:29)
[2019-03-03] MEDS: DEXAMETHASONE SOD PHOSPHATE 4 MG in SYRINGE 0 ML IV SCH ×2 (08:29→12:40)
[2019-03-03] MEDS: DOCUSATE SODIUM 100 MG CAP PO SCH (08:29)
[2019-03-03] MEDS: POLYETHYLENE (MIRALAX) 17 GM PACK PO SCH (08:30)
--- NOTE | 2019-03-03 09:12 | Discharge Summary ---
Date of Service March 03, 2019 Admission HPI Per Admitting Provider Ms. Sow is a 43 year old female with a past medical history of vulvar cancer s/p excision, radiation and chemotherapy who presents to [facility] ED due to shortness of breath and weakness. She states that she has no history of pulmonary problems. She notes progressively worsening shortness of breath over the past 2 weeks, and states it has gotten to the point where she is unable to stand due to shortness of breath. She denies fever, chills or cough. She denies chest pain, palpitations, lightheadedness. She denies abdominal pain, nausea, vomiting, but does endorse decreased appetite. 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 She was found to have a lesion extending from the vaginal introitus to the rectum. She was referred to Dr. Lazaro at [facility] who has been following her since. She has also been following with Dr. Early and Dr. Becker in [place]. She had a PET scan in August 2018 that showed masses in the vulva, vagina, perineum and anterior wall of the anus, as well as adenopathy in the bilateral inguinal chains. There was no additional metastatic disease seen in the chest, abdomen, or pelvis. 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 She did not have any surgical excision. She completed her treatment in November 2018. This was considered a successful treatment, and she was not scheduled for any further chemotherapy or radiation. She was meant to have a PET scan in February for reassessment. Her radiation treatment left her with extensive ulceration in the vulvar and perineal region. She takes 30 mg of extended release morphine twice a day for this, and uses Tylenol and ibuprofen for breakthrough pain. She states that she was previously on oxycodone for breakthrough pain, however this was taken off as her pain had improved. In the last 2 weeks, she notes worsening pain in her perineal region, as well as back pain which is new. She attributes this to decreased activity at home. She does endorse bilateral leg weakness and numbness, which she states is new. She has difficulty with urinating and bowel movements due to pain, however denies urinary retention or fecal incontinence. PMHx: vulvar cancer, PCOS, obesity, gestational diabetes PSHx: section, cholecystectomy SHx: , lives at home with her and 4 children. No history of alcohol use, non-smoker, no recreational drug use Admission Exam Per Admitting Provider Constitutional: + ill appearing, + obese and cooperative Pale-appearing. Appears uncomfortable, lying very still, with pillows underneath the left side of her back Eyes: PERRL, conjunctivae normal, anicteric sclerae ENMT: external ear and nose normal, oropharynx normal Respiratory: normal respiratory effort, lungs clear to auscultation Cardiovascular: RRR, no murmur, no edema Gastrointestinal (Abdomen): Inspection/Auscultation: abdomen normal to inspection Percussion/Palpation: abdomen soft; abdomen nontender, no guarding and abdomen not rigid Musculoskeletal: Spine: + thoracic spinal tenderness and + paraspinal tenderness Neurologic: 5 out of 5 strength in upper extremities, 4 out of 5 strength in lower extremities bilaterally. Sensation intact in lower extremities bila terally Genitourinary: multiple ulcerations noted over vulva and perineal region. Garcia catheter in place Principal Diagnosis Metastatic Cancer Discharge Exam Constitutional + ill appearing and cooperative Eyes PERRL, conjunctivae normal, anicteric sclerae Respiratory Auscultation: + diminished lung sounds appears SOB w/speech, wearing 5L of oxygen via nasal cannula Cardiovascular RRR, no murmur, no edema Gastrointestinal (Abdomen) Percussion/Palpation: abdomen soft; abdomen nontender and abdomen not rigid Neurologic absent sensation & movement up until level of approx T7 Discharge Data Allergies Allergy/AdvReac Type Severity Reaction Status Date / Time No Known Allergies Allergy Mild Verified 02/26/19 16:39 Consultations 02/26/19 20:47 ED Decision to Admit Stat 02/26/19 22:41 Consult Hematology Routine 02/27/19 10:25 Consult Radiation Oncology Routine Ordered Studies 02/26/19 18:07 CT abd pelvis IV con only Stat CT angio chest PE protocol Stat 03/01/19 08:42 US effusion-chest/mediastinum Routine Hospital Course (1) Metastatic cancer: Ms. Sow is a 43 year old female with a past medical history of vulvar cancer s/p excision, radiation and chemotherapy who presents to [facility] ED due to shortness of breath and weakness. She was found to be hypoxic in the emergency department, with an oxygen saturation of 89% on room air. Her chest CTA unfortunately revealed extensive metastatic disease throughout the chest, this is new from prior imaging. She was admitted to [facility] for further investigation as well as pain management. 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 Completed chemotherapy and radiation, with good results. -has resultant ulcerations in vulvar and perineal area from radiation treatment Metastatic carcinoma -Imaging reveals metastases in the lungs, bony mets at T6 and T7 with resultant compression deformities, a lesion in the superior pole of the left kidney, and a necrotic nodule in the lower left rectus abdominis muscle -> these findings are all new from her prior PET scan on September 14, 2018 -Oncology consulted for further management -> will require biopsy to evaluate noted malignancy, however pt states she does not want a biopsy at this time. Overall goal is to return home on home ho spice, be comfortable, and spend time with family Bilateral lower extremity paralysis -CTA showed central canal stenosis, likely the cause of her bilateral lower extremity paralysis & absence of sensation given her absence of sensation begins at approx T7, which is where her pathology is -discussed this extensively w/patient and what this means going forward. Discussed option of having ortho spine evaluate patient for potential surgery - pt states she does not want to see ortho spine and wants to return home & be comfortable. Discussed the fact that this will not be reversible, but may confer her better pain control as she is no longer able to feel her perineal and vulvar ulcerations -garcia catheter will likely be a permanent solution now -will have to be more aggressive with scheduled bowel regimen as pt is at increased risk of constipation with long-term opioid use. Given her decreased sensation, she may not be able to tell if she is constipated, and will be at higher risk for bowel perf. Will d/c on scheduled bowel regimen -rad onc consulted -> pt was offered palliative radiation to thoracic & lumbar spine -> pt declined Pain management -Patient with severe pain in back due to bony mets. No pain in vulvar/perineal area due to absence of sensation -pt placed on a dilaudid BIOMETRY TEACHER on 02/27, which was increased on 03/02 w/addition of 30mg BID of oxycontin. -unable to transition pt to oral analgesics due to severity of pain - will d/c on 30mg BID of oxycontin with dilaudid BIOMETRY TEACHER for breakthrough pain -lyrica initiated this admission - increased regimen to 100mg bid Hypoxia -CTA negative for PE -CTA showed extensive metastatic disease throughout the chest, with small bilateral pleural effusion - likely the cause of her hypoxia -Continue oxygen on discharge, dilaudid BIOMETRY TEACHER will also help with feeling of SOB -started on dexamethasone whilst in hospital for worsening SOB - this will hop efully help with an anti-inflammatory effect in her lungs related to her metastases - will continue this for a few days on d/c Anemia -s/p 2 units of transfusion of prbcs on 02/28 for hgb of 6.9 -Hgb 7.9 on d/c (2) Vulva cancer: (3) Elevated troponin: (4) Pleural effusion: (5) Pain management: (6) Lower extremity weakness: (7) Hypoxia: (8) Anemia: (9) Shortness of breath: (10) Weakness: Total Time Total Time Spent Total Time Spent (In Minutes): <30 Discharge Plan Discharge Items Patient Disposition: Hospice - Home Reason For Visit: METASTATIC VULVAR CANCER, HYPOXIA Discharge Diagnosis: Metastatic Cancer Discharge Goals: Decrease discomfort Activity: Resume your previous activity Non-emergency contact: Primary Care Provider Call non-emergency contact if: you have any medication questions Follow-up/Referrals: PCP,NO [Primary Care Provider] - Diet: Regular Addtl Provider Instructions: Ms. Sow, you were seen at [facility] for management of your pain, related to your cancer. We will be sending you home on a pain regimen that consists of using oxycontin 30mg twice a day, scheduled, as well as lyrica 100mg, also twice a day. You can use your BIOMETRY TEACHER as needed for "breakthrough" pain. Please do not hold back on using the BIOMETRY TEACHER, as catching up on worsening pain is more difficult than maintaining a steady, low, level of pain, and we want you to remain comfortable. The BIOMETRY TEACHER will also help you with your symptoms of feeling short of breath. We will also be sending you home with supplemental oxygen to wear as well. Due to the fact that your pain will be managed with opioids, you run the risk of becoming constipated as these medications slow your gut down. We ask that you take daily stool softeners to prevent you from becoming constipated, even if you don't feel like you need to. Most importantly, spend time at home with your family. If you ever need anything, please do not hesitate to call the hospital and ask for Dr. Elam or Dr. Rojas. Prescriptions: New oxycodone [OxyContin] 15 mg Tablet,Oral Only,Ext.Rel.12 Hr 30 mg PO BID Qty: 60 RF: 0 sennosides [Senokot] 8.6 mg Tablet 8.6 mg PO DAILY PRN (Reason: constipation) Qty: 30 RF: 0 polyethylene glycol 3350 [Miralax] 17 gram Powder In Packet 17 g PO DAILY Qty: 30 RF: 0 lidocaine 5 % Adhesive Patch,Medicated 1 patch transdermal DAILY@1230 Qty: 15 RF: 0 docusate sodium 100 mg Capsule 100 mg PO BID Qty: 60 RF: 0 Lyrica 100 mg Capsule 100 mg PO BID Qty: 60 RF: 0 dexamethasone 4 mg tablet 4 mg PO TID 5 Days Qty: 15 RF: 0 Continued potassium chloride 20 mEq tablet extended release 20 meq PO Q OTHER DAY RF: 0 prochlorperazine maleate 10 mg tablet 10 mg PO Q6H PRN (Reason: nausea and vomiting) RF: 0 ondansetron 8 mg film 8 mg PO Q8H PRN (Reason: nausea and vomiting) RF: 0 acetaminophen [Tylenol Extra Strength] 500 mg Tablet 1,000 mg PO Q6H PRN (Reason: Pain) RF: 0 ibuprofen 200 mg Tablet 200 mg PO QID PRN (Reason: Pain) RF: 0 Discontinued morphine 30 mg capsule, ER multiphase 24 hr 30 mg PO Q12H RF: 0 Margarito 1.5/30 (21) 1.5-30 mg-mcg tablet 1 tab PO UD RF: 0 silver sulfadiazine [Silvadene] 1 % cream 1 applic TOP BID PRN (Reason: Unknown) RF: 0 diphenoxylate-atropine [Lomotil] 2.5-0.025 mg tablet 1 tab PO BID PRN (Reason: Diarrhea) RF: 0 Stand-Alone Forms: [facility] Discharge Orders: Discharge Order (Routine); Ordered 03/03/19 Ordered By: Talib Elam Admission Data Admit Date/Time: 02/26/19 21:55 Attending Provider: Sathish Rojas Admit Provider: Talib Elam Primary Care Provider: PCP,NO Other Providers: Debo Man ; Dank Acosta V ; Julius Becker Service: Oncology Other Interventions: Discharge Summary Assessment (RN) Last Done: 03/03/19 11:31 DC Date/Time DO NOT enter until pt leaves facility: 03/03/19 14:00 Supervising Physician Co-Signing Physician Notes I personally examined the patient and verified all norman points of history and exam, discussed case, and agree with decision making with Dr Elam. ready to go home. answered all questions to the best of my ability. breathing feeling a bit easier Vitals noted, in general she is lying in bed on her right side not appearing in any significant distress but not appearing oversedated either. Breathing is unlabored no accessory muscle use and no respiratory suppression. Skin shows no rashes no pallor or icterus. Metastatic vulvar cancer with thoracic metastases causing significant back pain, and lung mets causing significant hypoxia -multiple discussions / repeated discussions - purely palliative approach. pain controlled, BIOMETRY TEACHER set up for home. ready to go home. hospice. Otherwise as above Resident Activity Tracking Resident Involvement: Resident Care Provided Care Provided: Adult Hospital Medicine
[2019-03-03] MEDS: OXYCODONE HCL 15 MG TABCR (OXYCONTIN) PO SCH (09:34)
[2019-03-03] MEDS ORDERED: HYDROmorphone INJ 1 MG/ML SYRINGE IV SCH (10:45)
[2019-03-03 11:36] VITALS: BP 114/79; PULSE 96
[2019-03-03] MEDS: LIDOCAINE 5% 1 PATCH TD SCH (12:40)
[2019-03-03] MEDS ORDERED: HYDROmorphone INJ 1 MG/ML SYRINGE IV ONE (13:00)
[2019-03-03] MEDS: HEPARIN 100 UNIT/ML 5ML FLUSH FLUSH PRN (13:30)
== END 2019-03-03 14:00 | disposition hospice, home (50) | DRG 181 ==
LOC: ED 15:57 → 4E 21:55 → SUATTDRO 21:55 → 4E 22:13